=== PATIENT | male | born 1975 | race African-American/Black ===

== ENCOUNTER 2018-11-30 09:25 | Observation (INO) | payer OTHER ==
[2018-11-30] MEDS ORDERED: ONDANSETRON 4 MG/2 ML VIAL ONE (09:53)
[2018-11-30 09:55] LABS: Absolute Lymphocytes (CBC) 2.1 K/uL (0.7-4.9); Basophils % 0.5 % (0-1.3); Eosinophils % 4.1 % (0-4.4); Hematocrit 44.1 % (39.6-49.0); Lymphocytes % 25.6 % (15.3-44.8); MPV 9.1 fL (7.6-11.3); Monocytes % 6.4 % (3.3-12.3); RBC Red Blood Cell Count 5.35 M/uL (4.33-5.43)
[2018-11-30 09:57] LABS: Protime INR 0.97
[2018-11-30] MEDS ORDERED: MECLIZINE HCL 12.5 MG TAB ONE (09:59)
[2018-11-30] MEDS ORDERED: NA CHLORIDE 0.9% 1,000 ML ONE (10:00)
--- NOTE | 2018-11-30 10:08 | EKG ---
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
--- NOTE | 2018-11-30 10:10 | RAD REPORT ---
EXAM DESCRIPTION: CT - Head Brain Wo Cont - 11/30/2018 9:58 am CLINICAL HISTORY: Weakness, dizziness, vertigo, hypertension COMPARISON: None. TECHNIQUE: Axial 5 mm thick images of the head were obtained without IV contrast. All CT scans are performed using dose optimization technique as appropriate and may include automated exposure control or mA/KV adjustment according to patient size. FINDINGS: No intracranial hemorrhage, mass, edema or shift of mid-line structures. No acute infarcti on changes seen. No abnormal extra-axial fluid collections. Ventricles are normal. Mastoid air cells and visualized portions of the paranasal sinuses are clear. No acute bony findings. IMPRESSION: Negative non-contrast CT head examination.
[2018-11-30 10:21] LABS: Albumin 3.7 g/dL (3.4-5.0); Bilirubin Direct 0.1 mg/dL (0-0.2); Bilirubin Total 0.6 mg/dL (0.2-1.0); Magnesium 2.1 mg/dL (1.8-2.4); Potassium 3.8 mmol/L (3.5-5.1); Protein, Total 7.7 g/dL (6.4-8.2); Troponin (Emerg Dept Use Only) 0.39 ng/mL (0.0-0.045)
[2018-11-30] MEDS ORDERED: ENOXAPARIN 100 MG/ML SYR SQ ONE (11:09)
[2018-11-30] MEDS ORDERED: ASPIRIN 81 MG CHEWABLE TABLET ONE (11:09)
--- NOTE | 2018-11-30 11:20 | EDPHYS ---
Physician Documentation [facility] Name: Jeannettejohana Cristiano Age: 43 yrs Sex: Male : 1975 Arrival Date: 11/30/2018 Time: 09:27 Bed 2 Private MD: ED Physician Alo Ortiz HPI: 11/30 09:51 This 43 yrs old Black Male presents to ER via EMS with complaints of Vertigo, Nausea. cp 09:51 The patient presents with lightheadedness, feeling off balance, sense of spinning. cp 09:51 Onset: The symptoms/episode began/occurred this morning, upon awakening at 0400. cp Context: occurred at work, occurred while the patient was getting up from bed, just prior to the episode the patient experienced no apparent symptoms. Associated signs and symptoms: Pertinent positives: nausea, Pertinent negatives: abdominal pain, chest pain, diaphoresis, focal weakness, headache, syncope, vomiting. Severity of symptoms: in the emergency department the symptoms are unchanged despite EMS interventions. Patient's baseline: Neuro: alert and fully oriented, Motor: no deficits, Ambulation: walks without assistance, Speech: normal. Historical: - Allergies: 09:34 No Known Allergies; sv - Home Meds: 09:34 losartan-hydrochlorothiazide oral oral [Active]; amlodipine oral [Active]; sv - PMHx: 09:34 Hypertension; vertigo; sv - PSHx: 09:34 Hernia repair; sv - Immunization history:: Adult Immunizations up to date. - Social history:: Smoking status: Patient/guardian denies using tobacco, Patient uses alcohol, but reports only rare drinking. - Ebola Screening: : No symptoms or risks identified at this time. ROS: 09:55 Constitutional: Negative for body aches, chills, fever, poor PO intake. cp 09:55 Eyes: Negative for injury, pain, redness, and discharge. cp 09:55 ENT: Negative for drainage from ear(s), ear pain, sore throat, difficulty swallowing, difficulty handling secretions. 09:55 Cardiovascular: Negative for chest pain, edema, palpitations. 09:55 Respiratory: Negative for cough, shortness of breath, wheezing. 09:55 Abdomen/GI: Positive for nausea, Negative for abdominal pain, vomiting, diarrhea, constipation, black/tarry stool, rectal bleeding. 09:55 : Negative for urinary symptoms, testicular pain 09:55 Neuro: Positive for dizziness, Negative for altered mental status, headache, syncope, weakness. 09:55 All other systems are negative. Exam: 09:35 ECG was reviewed by the Attending Physician. cp 09:58 Constitutional: The patient appears in no acute distress, alert, awake, cp non-diaphoretic, non-toxic, well developed, well nourished. 09:58 Head/Face: Normocephalic, atraumatic. cp 09:58 Eyes: Periorbital structures: appear normal, Pupils: equal, round, and reactive to light and accomodation, Extraocular movements: intact throughout, Conjunctiva: normal, no exudate, no injection, Sclera: no appreciated abnormality, Lids and lashes: appear normal, bilaterally, Nystagmus: nystagmus with fast component noted, bilaterally. 09:58 ENT: External ear(s): are unremarkable, Ear canal(s): are normal, clear, TM's: are normal, no evidence of bulging, no erythema, Nose: is normal, Mouth: is normal, Posterior pharynx: is normal, airway is patent, no erythema, no exudate. 09:58 Neck: ROM/movement: is normal, is supple, without pain, no range of motions limitations, no meningismus, no nuchal rigidity. 09:58 Chest/axilla: Inspection: normal, Palpation: is normal, no crepitus, no tenderness. 09:58 Cardiovascular: Rate: normal, Rhythm: regular, Edema: is not appreciated, JVD: is not appreciated. 09:58 Respiratory: the patient does not display signs of respiratory distress, Respirations: normal, Breath sounds: are clear throughout, no decreased breath sounds, no stridor, no wheezing. 09:58 Abdomen/GI: Inspection: abdomen appears normal, Bowel sounds: active, all quadrants, Palpation: abdomen is soft and non-tender, in all quadrants, rebound tenderness, is not appreciated, voluntary guarding, is not appreciated, involuntary guarding, is not appreciated. 09:58 Skin: no rash present. 09:58 Neuro: Orientation: to person, place \T\ time. Mentation: is normal, Cerebellar function: is grossly normal, Motor: is normal, Sensation: no obvious gross deficits. Vital Signs: 09:34 BP 149 / 82; Pulse 67; Resp 16; Temp 97.5; Pulse Ox 99% ; Weight 113.4 kg; Height 5 ft. sv 11 in. (180.34 cm); Pain 0/10; 10:42 BP 140 / 95; Pulse 49; Resp 16; Pulse Ox 99% ; sv 09:34 Body Mass Index 34.87 (113.40 kg, 180.34 cm) sv NIH Stroke Scale Scores: 09:35 NIHSS Score: 0 sv 09:48 NIHSS Score: 0 cp [place] Coma Score: 09:48 Eye Response: spontaneous(4). Verbal Response: oriented(5). Motor Response: obeys cp commands(6). Total: 15. MDM: 09:45 Patient medically screened. cp 09:46 ED course: Patient is not a candidate for tpa due to onset of symptoms occurring upon cp awakening \T\0400 this morning. 10:55 Data reviewed: vital signs, nurses notes, lab test result(s), EKG, radiologic studies, cp CT scan, plain films, I have discussed the patient's presentation/case with the attending Emergency Department Physician; and as a result, I will admit patient. 10:55 Test interpretation: by ED physician or midlevel provider: ECG, plain radiologic cp studies. Counseling: I had a detailed discussion with the patient and/or guardian regarding: the historical points, exam findings, and any diagnostic results supporting the discharge/admit diagnosis, lab results, radiology results, to return to the emergency department if symptoms worsen or persist or if there are any questions or concerns that arise at home. 11:10 Physician consultation: Roscoe Myers DO was contacted at 11:10, regarding admission, cp to the telemetry unit. patient's condition. 11/30 09:42 Order name: Basic Metabolic Panel; Complete Time: 10:25 11/30 11:06 Interpretation: Normal except: GLUC 111; CRE 1.32; GFR 72. cp 11/30 09:42 Order name: CBC with Diff; Complete Time: 10:25 11/30 09:42 Order name: LFT's; Complete Time: 10:25 11/30 09:42 Order name: Magnesium; Complete Time: 10:25 11/30 09:42 Order name: NT PRO-BNP; Complete Time: 10:25 11/30 09:42 Order name: PT-INR; Complete Time: 10:25 sv 11/30 09:42 Order name: Troponin (emerg Dept Use Only); Complete Time: 10:25 11/30 10:29 Interpretation: Abnormal: TROPED 0.39. 11/30 09:42 Order name: XRAY Chest (1 view); Complete Time: 12:18 sv 11/30 12:18 Interpretation: Report review. 11/30 09:42 Order name: CT Head Brain wo Cont; Complete Time: 10:25 11/30 10:46 Interpretation: Report reviewed. 11/30 11:07 Order name: Troponin (emerg Dept Use Only); Complete Time: 12:18 11/30 12:19 Interpretation: Abnormal: TROPED 0.50. 11/30 09:42 Order name: EKG; Complete Time: 09:45 11/30 09:42 Order name: Cardiac monitoring; Complete Time: 09:43 sv 11/30 09:42 Order name: EKG - Nurse/Tech; Complete Time: 09:43 11/30 09:42 Order name: IV Saline Lock; Complete Time: 09:43 sv 11/30 09:42 Order name: Labs collected and sent; Complete Time: 09:43 sv 11/30 09:42 Order name: O2 Per Protocol; Complete Time: 09:43 11/30 09:42 Order name: O2 Sat Monitoring; Complete Time: 09:43 sv EC:35 Rate is 71 beats/min. Rhythm is regular. AL interval is normal. QRS interval is normal. cp QT interval is normal. T waves are Inverted in lead aVL. Interpreted by me. Reviewed by me. Administered Medications: 09:39 Drug: Zofran 4 mg Route: IVP; Site: left antecubital; sv 09:53 Follow up: Response: No adverse reaction; Marked relief of symptoms; Nausea is decreasedsv 09:52 Drug: Meclizine 50 mg Route: PO; sv 10:50 Follow up: Response: No adverse reaction; Marked relief of symptoms sv 09:52 Drug: NS 0.9% 1000 ml Route: IV; Rate: 1000 ml; Site: left antecubital; sv 11:00 Drug: Aspirin Chewable Tablet 324 mg Route: PO; sv 11:13 Follow up: Response: No adverse reaction sv 11:00 Drug: Lovenox 100 mg Route: Sub-Q; Site: left lower abdomen; sv 11:13 Follow up: Response: No adverse reaction sv Disposition: 13:21 Co-signature as Attending Physician, Alo Ortiz MD. gs Disposition: 11/30/18 11:19 Hospitalization ordered by Roscoe Myers for Inpatient Admission. Preliminary diagnosis are Dizziness and giddiness, Other hypertrophic cardiomyopathy, Hypertensive heart disease, Elevated troponin. - Bed requested for Telemetry/MedSurg (Inpatient). - Status is Inpatient Admission. sv - Condition is Stable. - Problem is new. - Symptoms have improved. UTI on Admission? No NIH Stroke Scale - NIH Stroke Score Date: 11/30/2018 Time: 09:35 Total Score = 0 1a. Level of Consciousness (LOC) - 0(Alert) 1b. Level of Consciousness (LOC) (Year \T\ Age) - 0(Both) 1c. LOC Commands (Open \T\ Closes Eyes/Clinical Research Monitor) - 0(Both) 2. Best Gaze (Lateral Gaze Paresis) - 0(Normal) 3. Visual Field Loss - 0(No visual loss) 4. Facial Palsy - 0(Normal) 5a. Left Arm: Motor (10-second hold) - 0(No drift) 5b. Right Arm: Motor (10-second hold) - 0(No drift) 6a. Left Leg: Motor (5-second hold - always test supine) - 0(No drift) 6b. Right Leg: Motor (5-second hold - always test supine) - 0(No drift) 7. Limb Ataxia (finger/nose \T\ heel/rendon - test with eyes open) - 0(Absent) 8. Sensory Loss (pinprick arms/legs/face) - 0(Normal) 9. Best Language: Aphasia (description/naming/reading) - 0(No aphasia) 10. Dysarthria (speech clarity - read or repeat words) - 0(Normal) 11. Extinction and Inattention (visual/tactile/auditory/spatial/personal) - 0(No abnormality) Initials: sv NIH Stroke Scale - NIH Stroke Score Date: 11/30/2018 Time: 09:48 Total Score = 0 1a. Level of Consciousness (LOC) - 0(Alert) 1b. Level of Consciousness (LOC) (Year \T\ Age) - 0(Both) 1c. LOC Commands (Open \T\ Closes Eyes/Clinical Research Monitor) - 0(Both) 2. Best Gaze (Lateral Gaze Paresis) - 0(Normal) 3. Visual Field Loss - 0(No visual loss) 4. Facial Palsy - 0(Normal) 5a. Left Arm: Motor (10-second hold) - 0(No drift) 5b. Right Arm: Motor (10-second hold) - 0(No drift) 6a. Left Leg: Motor (5-second hold - always test supine) - 0(No drift) 6b. Right Leg: Motor (5-second hold - always test supine) - 0(No drift) 7. Limb Ataxia (finger/nose \T\ heel/rendon - test with eyes open) - 0(Absent) 8. Sensory Loss (pinprick arms/legs/face) - 0(Normal) 9. Best Language: Aphasia (description/naming/reading) - 0(No aphasia) 10. Dysarthria (speech clarity - read or repeat words) - 0(Normal) 11. Extinction and Inattention (visual/tactile/auditory/spatial/personal) - 0(No abnormality) Initials: cp Signatures: Dispatcher [employer] EDAR Sandra Natarajan RN RN sv Page, Corey, PA PA cp Starr, Gregory, MD MD gs Botello, Elizabeth eb Corrections: (The following items were deleted from the chart) 12:01 11:19 Hospitalization Ordered by Roscoe Myers DO for Inpatient Admission. eb Preliminary diagnosis is Dizziness and giddiness; Other hypertrophic cardiomyopathy; Hypertensive heart disease; Elevated troponin. Bed requested for Telemetry/MedSurg (Inpatient). Status is Inpatient Admission. Condition is Stable. Problem is new. Symptoms have improved. UTI on Admission? No. cp 13:08 12:01 11/30/2018 11:19 Hospitalization Ordered by Roscoe Myers DO for sv Inpatient Admission. Preliminary diagnosis is Dizziness and giddiness; Other hypertrophic cardiomyopathy; Hypertensive heart disease; Elevated troponin. Bed requested for Telemetry/MedSurg (Inpatient). Status is Inpatient Admission. Condition is Stable. Problem is new. Symptoms have improved. UTI on Admission? No. eb
--- NOTE | 2018-11-30 11:20 | ER ---
Nurse's Notes [facility] Name: Seymour Cristiano Age: 43 yrs Sex: Male : 1975 Arrival Date: 11/30/2018 Time: 09:27 Bed 2 Private MD: Diagnosis: Dizziness and giddiness;Other hypertrophic cardiomyopathy;Hypertensive heart disease;Elevated troponin Presentation: 11/30 09:22 Presenting complaint: EMS states: vertigo/nausea started 0400 today right after waking sv up. Negative TILT/stroke scale. BP 155/95 HR-80 RR-18 97% RA 967.6, 20 G L AC. Transition of care: patient was not received from another setting of care. Onset of symptoms was November 30, 2018 at 04:00. Risk Assessment: Do you want to hurt yourself or someone else? Patient reports no desire to harm self or others. Initial Sepsis Screen: Does the patient meet any 2 criteria? No. Patient's initial sepsis screen is negative. Does the patient have a suspected source of infection? No. Patient's initial sepsis screen is negative. Care prior to arrival: Medication(s) given: zofran 4 mg IVP IV initiated. 20 GA, in the left antecubital area. 09:22 Method Of Arrival: EMS: [facility] sv 09:27 Acuity: BEBE 3 sv Triage Assessment: 09:25 General: Appears in no apparent distress. comfortable, well developed, Behavior is sv calm, cooperative, appropriate for age. Pain: Denies pain. Neuro: Level of Consciousness is awake, alert, obeys commands, Oriented to person, place, time, situation, Liability Analyst are equal bilaterally Moves all extremities. Full function Speech is normal, Facial symmetry appears normal, Facial symmetry: tongue is midline, Pupils are PERRLA, Reports dizziness, Denies blurred vision numbness headache diplopia. Cardiovascular: Patient's skin is warm and dry. Rhythm is sinus rhythm. Respiratory: Airway is patent Respiratory effort is even, unlabored, Respiratory pattern is regular, symmetrical. GI: Reports nausea. Derm: Skin is pink, warm \T\ dry. Historical: - Allergies: 09:34 No Known Allergies; sv - Home Meds: 09:34 losartan-hydrochlorothiazide oral oral [Active]; amlodipine oral [Active]; sv - PMHx: 09:34 Hypertension; vertigo; sv - PSHx: 09:34 Hernia repair; sv - Immunization history:: Adult Immunizations up to date. - Social history:: Smoking status: Patient/guardian denies using tobacco, Patient uses alcohol, but reports only rare drinking. - Ebola Screening: : No symptoms or risks identified at this time. Screenin:30 Abuse screen: Denies threats or abuse. Denies injuries from another. Nutritional sv screening: No deficits noted. Tuberculosis screening: No symptoms or risk factors identified. Fall Risk No fall in past 12 months (0 pts). No secondary diagnosis (0 pts). IV access (20 points). Ambulatory Aid- None/Bed Rest/Nurse Assist (0 pts). Gait- Normal/Bed Rest/Wheelchair (0 pts) Mental Status- Oriented to own ability (0 pts). Total Frias Fall Scale indicates No Risk (0-24 pts). 09:35 VAN Screening: Arm Drift: Patient shows no arm weakness. Patient is VAN negative. sv Visual Disturbance: No visual disturbance noted. Aphasia: No aphasia noted. Neglect: No neglect noted. 09:51 Patient has been NPO before screening. The patient is alert, able to follow commands. sv The patient does not exhibit slurred or garbled speech The patient is not exhibiting difficulty speaking. The patient does not exhibit difficulty understanding words. The patient is able to swallow own secretions with no drooling or need for suction. Patient tolerated one teaspoon of water. No drooling, immediate coughing, gurgling, or clearing of the throat was noted. The patient tolerated 90mL of water. No drooling, immediate coughing, gurgling, or clearing of the throat was noted. The patient passed the bedside swallow screening. Oral medications may be given as ordered. Contact Physician for further diet orders. Provider notified of bedside swallow screening results: Andresw CHRISTY. Assessment: 10:50 Reassessment: Patient appears in no apparent distress at this time. Patient and/or sv family updated on plan of care and expected duration. Pain level reassessed. Patient is alert, oriented x 3, equal unlabored respirations, skin warm/dry/pink. Patient denies pain at this time. Patient states feeling better. Patient states symptoms have improved. 11:00 Reassessment: Dr Myers at the bedside. sv 12:04 Reassessment: Attempted to call report, nurse to call back. sv 12:05 Reassessment: Patient appears in no apparent distress at this time. Patient and/or sv family updated on plan of care and expected duration. Pain level reassessed. Patient is alert, oriented x 3, equal unlabored respirations, skin warm/dry/pink. Vital Signs: 09:34 BP 149 / 82; Pulse 67; Resp 16; Temp 97.5; Pulse Ox 99% ; Weight 113.4 kg; Height 5 ft. sv 11 in. (180.34 cm); Pain 0/10; 10:42 BP 140 / 95; Pulse 49; Resp 16; Pulse Ox 99% ; sv 09:34 Body Mass Index 34.87 (113.40 kg, 180.34 cm) sv [place] Coma Score: 09:48 Eye Response: spontaneous(4). Verbal Response: oriented(5). Motor Response: obeys cp commands(6). Total: 15. NIH Stroke Scale Scores: 09:35 NIHSS Score: 0 sv 09:48 NIHSS Score: 0 cp ED Course: 09:22 Maintain EMS IV. Dressing intact. Good blood return noted. Site clean \T\ dry. Gauge \T\ sv site: 20 G L AC. 09:27 Patient arrived in ED. sv 09:27 Sandra Natarajan, NARDA is Primary Nurse. sv 09:28 Triage completed. sv 09:28 Andrews Peter PA is PHCP. cp 09:28 Alo Ortiz MD is Attending Physician. cp 09:30 Patient has correct armband on for positive identification. Placed in gown. Bed in low sv position. Call light in reach. Side rails up X2. monitoring specialist on. Pulse ox on. NIBP on. Door closed. Warm blanket given. Head of bed elevated. 09:30 Initial lab(s) drawn, by me, sent to lab. sv 09:35 Arm band placed on. sv 09:47 EKG done, by concrete technician. reviewed by Andrews CHRISTY. sm3 09:[address] via stretcher. sv 09:55 Awaiting lab results, Awaiting radiology results. Awaiting for x-ray. sv 09:58 CT Head Brain wo Cont In Process Unspecified. EDMS 10:[address]. sv 10:17 X-ray completed. Portable x-ray completed in exam room. Patient tolerated procedure jb2 well. 10:17 XRAY Chest (1 view) In Process Unspecified. EDMS 11:00 Repeat lab(s) drawn. by me, sent to lab. sv 11:14 Awaiting lab results. sv 11:16 Roscoe Myers DO is Hospitalizing Provider. cp 11:48 Awaiting bed assignment. sv 12:34 No provider procedures requiring assistance completed. Patient admitted, IV remains in aa5 place. Administered Medications: 09:39 Drug: Zofran 4 mg Route: IVP; Site: left antecubital; sv 09:53 Follow up: Response: No adverse reaction; Marked relief of symptoms; Nausea is decreasedsv 09:52 Drug: Meclizine 50 mg Route: PO; sv 10:50 Follow up: Response: No adverse reaction; Marked relief of symptoms sv 09:52 Drug: NS 0.9% 1000 ml Route: IV; Rate: 1000 ml; Site: left antecubital; sv 11:00 Drug: Aspirin Chewable Tablet 324 mg Route: PO; sv 11:13 Follow up: Response: No adverse reaction sv 11:00 Drug: Lovenox 100 mg Route: Sub-Q; Site: left lower abdomen; sv 11:13 Follow up: Response: No adverse reaction sv Outcome: 11:19 Decision to Hospitalize by Provider. cp 12:34 Admitted to Tele accompanied by tech, via wheelchair, with chart, Report called to BRYAN Ibanez RN 12:34 Condition: stable 12:34 Instructed on the need for admit, Demonstrated understanding of instructions. 13:08 Patient left the ED. sv NIH Stroke Scale - NIH Stroke Score Date: 11/30/2018 Time: 09:35 Total Score = 0 1a. Level of Consciousness (LOC) - 0(Alert) 1b. Level of Consciousness (LOC) (Year \T\ Age) - 0(Both) 1c. LOC Commands (Open \T\ Closes Eyes/Dental Detail Representative) - 0(Both) 2. Best Gaze (Lateral Gaze Paresis) - 0(Normal) 3. Visual Field Loss - 0(No visual loss) 4. Facial Palsy - 0(Normal) 5a. Left Arm: Motor (10-second hold) - 0(No drift) 5b. Right Arm: Motor (10-second hold) - 0(No drift) 6a. Left Leg: Motor (5-second hold - always test supine) - 0(No drift) 6b. Right Leg: Motor (5-second hold - always test supine) - 0(No drift) 7. Limb Ataxia (finger/nose \T\ heel/rendon - test with eyes open) - 0(Absent) 8. Sensory Loss (pinprick arms/legs/face) - 0(Normal) 9. Best Language: Aphasia (description/naming/reading) - 0(No aphasia) 10. Dysarthria (speech clarity - read or repeat words) - 0(Normal) 11. Extinction and Inattention (visual/tactile/auditory/spatial/personal) - 0(No abnormality) Initials: pancho NIH Stroke Scale - NIH Stroke Score Date: 11/30/2018 Time: 09:48 Total Score = 0 1a. Level of Consciousness (LOC) - 0(Alert) 1b. Level of Consciousness (LOC) (Year \T\ Age) - 0(Both) 1c. LOC Commands (Open \T\ Closes Eyes/Dental Detail Representative) - 0(Both) 2. Best Gaze (Lateral Gaze Paresis) - 0(Normal) 3. Visual Field Loss - 0(No visual loss) 4. Facial Palsy - 0(Normal) 5a. Left Arm: Motor (10-second hold) - 0(No drift) 5b. Right Arm: Motor (10-second hold) - 0(No drift) 6a. Left Leg: Motor (5-second hold - always test supine) - 0(No drift) 6b. Right Leg: Motor (5-second hold - always test supine) - 0(No drift) 7. Limb Ataxia (finger/nose \T\ heel/rendon - test with eyes open) - 0(Absent) 8. Sensory Loss (pinprick arms/legs/face) - 0(Normal) 9. Best Language: Aphasia (description/naming/reading) - 0(No aphasia) 10. Dysarthria (speech clarity - read or repeat words) - 0(Normal) 11. Extinction and Inattention (visual/tactile/auditory/spatial/personal) - 0(No abnormality) Initials: cp Signatures: Dispatcher [employer] Sandra Valera RN RN sv Buechter, Jesse jb2 Sydney Reyes RN RN aa5 Andrews Peter PA PA cp Meghann Byers sm3 Corrections: (The following items were deleted from the chart) 11:13 09:30 Initial lab(s) drawn, by me, pancho sv
--- NOTE | 2018-11-30 11:37 | P.HP ---
Certification for Inpatient Patient admitted to: Observation With expected LOS: <2 Midnights Patient will require the following post-hospital care: None Practitioner: I am a practitioner with admitting privileges, knowledge of patient current condition, hospital course, and medical plan of care. Services: Services provided to patient in accordance with Admission requirements found in Title 42 Section 412.3 of the Code of Federal Regulations Patient History Date of Service: 11/30/18 Primary Care Provider: Dr. Conklin; Cardiology-Dr. Betancourt Reason for admission: Dizziness History of Present Illness: 43-year-old male presented emergency room with dizziness. Patient with history of hypertension and hypertrophic cardiomyopathy. Patient reported dizziness early this morning when he woke up. He did not have any chest pain or shortness of breath at that time. Some nausea was noted. Patient did not improve. He called EMS. He was transported to the ER for further evaluation. In the ER patient evaluated. EKG showed some inverted T-waves in the inferior leads. Troponin was at 0.39. CBC unremarkable. BMP showed a sodium 142, creatinine 1.32 with a GFR 72. CT head unremarkable. Patient was given meclizine with improvement of symptoms. Patient was admitted for observation and to further evaluate. When I saw the patient in ER, he appeared stable. No chest pain, shortness of breath noted. Blood pressure slightly elevated. Patient reports history of cardiomyopathy. Seen by Cardiology in the past. Last seen by Cardiology 2 years ago. Last cardiac stress test done last year in [place] which was unremarkable, as per patient. Allergies No Known Allergies Allergy (Unverified 02/19/16 03:09) Home medications list reviewed: Yes - Past Medical/Surgical History Diabetic: No -: Hypertension -: Hypertrophic cardiomyopathy -: Hernia repair Psychosocial/ Personal History: Patient has a girlfriend. 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 - Family History Father -: Heart disease - Social History Smoking Status: Never smoker Alcohol use: Yes CD- Drugs: No Caffeine use: Yes Place of Residence: Home Review of Systems General: As per HPI Eyes: Unremarkable ENT: Unremarkable Respiratory: Unremarkable Cardiovascular: Light Headedness, As per HPI Gastrointestinal: Nausea, Unremarkable Musculoskeletal: Unremarkable Integumentary: Unremarkable Neurological: As per HPI Lymphatics: Unremarkable Physical Examination - Physical Exam General: Alert, In no apparent distress, Oriented x3, Cooperative HEENT: Atraumatic, Normocephalic, PERRLA, Mucous membr. moist/pink Neck: Supple, No Thyromegaly Respiratory: Clear to auscultation bilaterally, Normal air movement Cardiovascular: Normal pulses, Regular rate/rhythm Gastrointestinal: Normal bowel sounds, Soft and benign, Non-distended, No tenderness, No masses, No rebound, No guarding Musculoskeletal: No erythema, No tenderness, No warmth Integumentary: No tenderness/swelling, No erythema, No warmth, No cyanosis Neurological: Normal speech, Normal strength at 5/5 x4 extr, Normal tone, Normal affect - Studies Laboratory Data (last 24 hrs) 11/30/18 09:30: PT 11.5, INR 0.97 11/30/18 09:30: WBC 8.4, Hgb 14.3, Hct 44.1, Plt Count 233 11/30/18 09:30: Sodium 142, Potassium 3.8, BUN 14, Creatinine 1.32 H, Glucose 111 H, Magnesium 2.1, Total Bilirubin 0.6, AST 31, ALT 43, Alkaline Phosphatase 78 Assessment and Plan - Plan Impression: Dizziness with elevated troponin likely related to hypertrophic cardiomyopathy Hypertension, uncontrolled Plan: Patient will be admitted for observation. Case discussed with cardiology. Elevated troponin likely related to his hypertrophic cardiomyopathy. Will start DVT prophylaxis-Lovenox. Will start aspirin, Lipitor. Will restart his home medication of losartan and Norvasc. Adjustment in medication may be required. Will obtain echocardiogram to further evaluate. Patient may require further cardiac intervention/evaluation. Await further recommendations by Cardiology. Will continue to monitor patient closely. Will provide medication for chest pain if required. Patient reports history of cardiac stress test last year in [place] which was unremarkable. Will try to obtain results from [place]. Continue to monitor on telemetry. Will continue with cardiac enzymes. Anticipate discharge in the next 24-48 hr. Discharge Plan: Home Plan to discharge in: 24 Hours - Advance Directives Does patient have a Living Will: No Does patient have a Durable POA for Healthcare: No - Code Status/Comfort Care Code Status Assessed: Yes (Patient full code.) Time Spent Managing Pts Care (In Minutes): 55
--- NOTE | 2018-11-30 12:05 | RAD REPORT ---
EXAM DESCRIPTION: Tonja Single View11/30/2018 10:19 am CLINICAL HISTORY: Hypertension/vertigo COMPARISON: 2010 FINDINGS: The lungs appear clear of acute infiltrate. The heart is normal size. Mild prominence of the mediastinum is stable IMPRESSION: No acute abnormalities displayed
[2018-11-30] MEDS ORDERED: NITROGLYCERIN 0.4 MG/TAB SL PRN (13:26)
[2018-11-30] MEDS ORDERED: ONDANSETRON 4 MG/2 ML VIAL IV PRN (13:26)
[2018-11-30] MEDS ORDERED: MORPHINE 2 MG/ML SYR IV PRN (13:26)
[2018-11-30] MEDS ORDERED: ACETAMINOPHEN 500 MG TAB PO PRN (13:26)
[2018-11-30 16:24] LABS: Urine Appearance CLEAR; Urine Bilirubin NEGATIVE (NEG); Urine Blood NEGATIVE (NEG); Urine Color YELLOW; Urine Glucose NEGATIVE (NEG); Urine Microscopic Reflex NO UMIC; Urine Protein NEGATIVE (NEG); Urine Urobilinogen 0.2 mg/dL (0.2-1.0)
--- NOTE | 2018-11-30 17:05 | P.DS ---
Admission Date: 11/30/18 Discharge Date: 11/30/18 Primary Care Provider: Dr. Conklin; Cardiology-Dr. Betancourt Disposition: ROUTINE DISCHARGE Discharge Condition: GOOD Reason for Admission: Dizziness Consultations: Cardiology-Dr. Robertson Procedures: Echocardiogram: Ejection fraction within normal range. LVH noted. Medical problem list: Dizziness likely related to benign paroxysmally positional vertigo Elevated troponin secondary to hypertrophic cardiomyopathy Hypertension, uncontrolled Brief History of Present Illness: 43-year-old male presented emergency room with dizziness. Patient with history of hypertension and hypertrophic cardiomyopathy. Patient reported dizziness early this morning when he woke up. He did not have any chest pain or shortness of breath at that time. Some nausea was noted. Patient did not improve. He called EMS. He was transported to the ER for further evaluation. In the ER patient evaluated. EKG showed some inverted T-waves in the inferior leads. Troponin was at 0.39. CBC unremarkable. BMP showed a sodium 142, creatinine 1.32 with a GFR 72. CT head unremarkable. Patient was given meclizine with improvement of symptoms. Patient was admitted for observation and to further evaluate. When I saw the patient in ER, he appeared stable. No chest pain, shortness of breath noted. Blood pressure slightly elevated. Patient reports history of cardiomyopathy. Seen by Cardiology in the past. Last seen by Cardiology 2 years ago. Last cardiac stress test done last year in [place] which was unremarkable, as per patient. Hospital Course: Patient presented with dizziness. Patient evaluated in the emergency room found to have elevated troponin. Patient with underlying hypertrophic cardiomyopathy. Blood pressures elevated upon admission. Patient was admitted for observation. Patient seen and evaluated by Cardiology. Echocardiogram showed normal ejection fraction with left ventricular hypertrophy. Elevated troponin likely related to hypertrophic cardiomyopathy. Cardiology recommended no further intervention at this time. Prior cardiac stress test unremarkable. Cardiology felt dizziness was related to benign paroxysmally positional vertigo. Patient responded well to medication. At discharge he will continue with meclizine 25 mg twice daily as needed for dizziness. Hallpike maneuvers will be provided. As for his hypertrophic cardiomyopathy and hypertension, patient will continue with his current medications of losartan/hydrochlorothiazide 100 mg/25 mg daily and Norvasc 10 mg daily. Will recommend to start aspirin 81 mg daily and fish oil 1000 mg 2 pills twice daily. Recommend to follow up with cardiology within 1-2 weeks to follow up this hospitalization. Patient may require cardiac stress test as an outpatient to further address. Recommend annual echocardiogram to monitor hypertrophic cardiomyopathy. Recommend blood pressures to remain around 120/80. If elevated greater than 140/90 further adjustment in medication may be required. This can be further addressed by his PCP or cardiology. Patient to continue with [employer] diet. Vital Signs/Physical Exam: Temp Pulse Resp BP Pulse Ox 97.1 F 63 18 125/58 L 97 11/30/18 16:24 11/30/18 16:24 11/30/18 16:24 11/30/18 16:24 11/30/18 16:24 General: Alert, In no apparent distress, Oriented x3, Cooperative HEENT: Atraumatic Neck: Supple Respiratory: Clear to auscultation bilaterally, Normal air movement Cardiovascular: Normal pulses, Regular rate/rhythm Gastrointestinal: Normal bowel sounds, Soft and benign, Non-distended Integumentary: No erythema, No warmth, No cyanosis Neurological: Normal speech, Normal strength at 5/5 x4 extr, Normal tone, Normal affect Laboratory Data at Discharge: WBC 8.4 K/uL (4.3-10.9) 11/30/18 09:30 Hgb 14.3 g/dL (13.6-17.9) 11/30/18 09:30 Hct 44.1 % (39.6-49.0) 11/30/18 09:30 Plt Count 233 K/uL (152-406) 11/30/18 09:30 PT 11.5 SECONDS (9.5-12.5) 11/30/18 09:30 INR 0.97 11/30/18 09:30 Sodium 142 mmol/L (136-145) 11/30/18 09:30 Potassium 3.8 mmol/L (3.5-5.1) 11/30/18 09:30 BUN 14 mg/dL (7-18) 11/30/18 09:30 Creatinine 1.32 mg/dL (0.55-1.3) H 11/30/18 09:30 Glucose 111 mg/dL (74-106) H 11/30/18 09:30 Magnesium 2.1 mg/dL (1.8-2.4) 11/30/18 09:30 Total Bilirubin 0.6 mg/dL (0.2-1.0) 11/30/18 09:30 AST 31 U/L (15-37) 11/30/18 09:30 ALT 43 U/L (12-78) 11/30/18 09:30 Alkaline Phosphatase 78 U/L (45-117) 11/30/18 09:30 Home Medications: Amlodipine [Norvasc*] 10 mg PO DAILY 11/30/18 Aspirin [Aspirin EC 81 MG] 81 mg PO DAILY #90 tablet. 11/30/18 Losartan/Hydrochlorothiazide [Losartan-Hctz 100-25 mg Tab] 1 each PO DAILY 11/30 Meclizine HCl 25 mg PO BID PRN #5 tablet 11/30/18 [place]-3 Fatty Acids/Fish Oil [Fish Oil 1,000 mg Softgel] 2 each PO BID #120 capsule 11/30/18 New Medications: Aspirin [Aspirin EC 81 MG] 81 mg PO DAILY #90 tablet. Meclizine HCl 25 mg PO BID PRN #5 tablet PRN Reason: Dizziness [place]-3 Fatty Acids/Fish Oil [Fish Oil 1,000 mg Softgel] 2 each PO BID #120 capsule Patient Discharge Instructions: 1. Follow up with his PCP in 1 week to follow up this hospitalization. 2. Patient presented with dizziness. Patient evaluated in the emergency room found to have elevated troponin. Patient with underlying hypertrophic cardiomyopathy. Blood pressures elevated upon admission. Patient was admitted for observation. Patient seen and evaluated by Cardiology. Echocardiogram showed normal ejection fraction with left ventricular hypertrophy. Elevated troponin likely related to hypertrophic cardiomyopathy. Cardiology recommended no further intervention at this time. Prior cardiac stress test unremarkable. Cardiology felt dizziness was related to benign paroxysmally positional vertigo. Patient responded well to medication. At discharge he will continue with meclizine 25 mg twice daily as needed for dizziness. Hallpike maneuvers will be provided. 3. As for his hypertrophic cardiomyopathy and hypertension, patient will continue with his current medications of losartan/hydrochlorothiazide 100 mg/25 mg daily and Norvasc 10 mg daily. Will recommend to start aspirin 81 mg daily and fish oil 1000 mg 2 pills twice daily. Recommend to follow up with cardiology within 1-2 weeks to follow up this hospitalization. Patient may require cardiac stress test as an outpatient to further address. Recommend annual echocardiogram to monitor hypertrophic cardiomyopathy. Recommend blood pressures to remain around 120/80. If elevated greater than 140/90 further adjustment in medication may be required. This can be further addressed by his PCP or cardiology. Patient to continue with [employer] diet. Diet: AHA Activity: Ad hakeem Time spent managing pt's care (in minutes): 55
[2018-11-30] MEDS ORDERED: LOSARTAN POTASSIUM 50 MG TABLET PO SCH (21:00)
[2018-11-30] MEDS ORDERED: ATORVASTATIN 80 MG TAB PO SCH (21:00)
--- NOTE | 2018-11-30 23:23 | CON ---
Date of Consultation: 11/30/2018 Admitted on 11/30/[address] Myers's service. I saw the patient on 11/30/2018. Reason For Consultation: Elevated troponin and abnormal EKG. History Of Present Illness: Mr. Quinonez is a 43-year-old black male, has had a history of hypertension and left ventricular hypertrophy in the past. He has seen Dr. Betancourt and has had a negative stress test in the past. He is very physically active, works out 3 times a week up to 20 or 30 minutes at a time with weightlifting and treadmill without any cardiac symptoms. He came in with vertigo. He mccall d a negative head CT; however, the EKG showed LVH and his troponin was 0.5 and I was consulted. His creatinine was 1.32. He denied PND, orthopnea, pedal edema, palpitations, or syncope. Past Medical History: Include hypertension. Medications: Include Norvasc and Hyzaar. Review of Systems: Negative. Social History: Negative. Family History: Negative. Physical Examination: Vital Signs: Stable, afebrile. HEENT: Negative. Neck: Supple without any bruit, lymphadenopathy, JVD, or thyromegaly. Chest: Clear to auscultation and percussion. Cardiac: Exam revealed a regular rhythm and rate with an S4 gallop. No murmurs or rubs. Abdomen: Benign. Extremities: Revealed no clubbing, cyanosis, or edema. Diagnostic Data: Chest x-ray was negative. CT of the head was negative. EKG showed LVH. Troponin of 0.5. Creatinine is 1.32. Impression And Plan: 1.Benign positional vertigo. 2.Hypertension. 3.Elevated troponin. 4.Elevated creatinine. Echocardiogram which was done showed significant hypertrophy without any obs truction and without any gradient, consistent with hypertension. The patient was instructed to watch his salt intake, watch his blood pressure, and continue with his home medication. I think the tropo dylan elevation is secondary to LVH, just likely the EKG changes are. I am comfortable with him going home and he will come to see me in the office on a yearly basis for checkup and maybe do an echocardi ogram once a year. Case was discussed with Dr. Myers. JAKE/MIGEL Voice ID: [id number] Report ID: [id number]
--- NOTE | 2018-12-01 07:44 | ECHO ---
HEIGHT: 5 ft 11 in WEIGHT: 259 lb 0 oz DATE OF STUDY: 11/30/[address]: Roscoe Myers DO 2-DIMENSIONAL: YES M.MODE: YES DOPPLER: YES COLOR FLOW: YES TDS: NO PORTABLE: NO DEFINITY: NO BUBBLE STUDY: NO DIAGNOSIS: EVALUATE HYPERTROPHIC CARDIOMYOPATHY CARDIAC HISTORY: CATHERIZATION: NO SURGERY: NO PROSTHETIC VALVE: NO PACEMAKER: NO MEASUREMENTS (cm) DIASTOLIC (NORMALS) SYSTOLIC (NORMALS) IVSd 1.5 (0.6-1.2) LA Diam 4.0 (1.9-4.0) LVEF 85% LVIDd 4.4 (3.5-5.7) LVIDs 2.0 (2.0-3.5) %FS 54% LVPWd 1.3 (0.6-1.2) Ao Diam (2.0-3.7) 2 DIMENSIONAL ASSESSMENT: RIGHT ATRIUM: NORMAL LEFT ATRIUM: NORMAL RIGHT VENTRICLE: NORMAL LEFT VENTRICLE: LEFT VENTRICULAR HYPERTROPHY TRICUSPID VALVE: NORMAL MITRAL VALVE: NORMAL PULMONIC VALVE: NORMAL AORTIC VALVE: NORMAL PERICARDIAL EFFUSION: NONE AORTIC ROOT: NORMAL LEFT VENTRICULAR WALL MOTION: NORMAL. DOPPLER/COLOR FLOW: NORMAL. COMMENTS: CONCENTRIC LEFT VENTRICULAR HYPERTROPHY. NORMAL EJECTION FRACTION. NO WALL MOTION ABNORMALITY. TECHNOLOGIST: TRUNG JAMES
[2018-12-01] MEDS ORDERED: AMLODIPINE 10 MG TAB PO SCH (09:00)
[2018-12-01] MEDS ORDERED: ENOXAPARIN 40 MG/0.4 ML SQ SCH (09:00)
[2018-12-01] MEDS ORDERED: ASPIRIN EC 81 MG TAB PO SCH (09:00)
== END 2018-11-30 17:45 | disposition home or self-care (01) ==
LOC: ER 09:25 → ERHOLD 11:21 → 2ND 12:36
PROVIDERS: ADMIT Family Medicine; ATTEND Family Medicine
DX: R42 Dizziness and giddiness (principal); I42.2 Other hypertrophic cardiomyopathy; I10 Essential (primary) hypertension
CPT/HCPCS: 36415; 70450; 71045; 80048; 80076; 81003; 83735; 83880; 84484; 85025; 85610; 93005; 93306; 96372; 96374; 99285; G0378; J1650; J2405; J7030

== ENCOUNTER 2020-01-13 05:56 | Inpatient (IN) | payer OTHER ==
--- OUTSIDE RECORDS SUMMARY | 2020-01-13 05:58 | XMS REPORT | Continuity of Care Document ---
:1975 Author Organization [facility] t Address [address] [place] [address] Care Team Providers Name Role Phone Singh Kothari Attending Clinician Lab, Fam Pob I Attending Clinician Unavailable Doctor Unassigned, Name Attending Clinician Unavailable Problems This patient has no known problems. Allergies, Adverse Reactions, Alerts This patient has no known allergies or adverse reactions. Medications This patient has no known medications. Procedures This patient has no known procedures. Encounters Start End Encounter Admission Attending Care Care Encounter Source Date/Time Date/Time Type Type Clinicians Facility Department ID 2019-12-21 2019-12-[address] [facility] [id number] 00:00:00 00:00:00 [facility] [id number] [place] [id number] Professio [phone] nal [address] 2019-12-20 2019-12-20 Laboratory Lab, [facility] [id number] 07:45:57 08:05:57 Only Fam P[facility] I [facility] [id number] [place] [id number] Professio [phone] nal [address] 2019-12-20 2019-12-20 Letter Doctor CURTIS [id number] 00:00:00 00:00:00 (Out) Unassigned, JESUS [id number] [place] [phone] [id number] Results This patient has no known results.
--- OUTSIDE RECORDS SUMMARY | 2020-01-13 05:58 | XMS REPORT | Summary of Care ---
:1975 Author Organization [facility] - [facility] Address [address] [place] [address] Care Team Providers Name Role Phone Unavailable Primary Care Provider Unavailable Encounter Details Date Type Department Care Team Description 12/20/2019 Letter (Out) [facility] MyChart Message s Doctor Unassigned, No [address] [facility] [place] [address] [address] [facility] [phone] [place] [address] Allergies Not on Filedocumented as of this encounter (statuses as of 12/20/2019) Medications Not on filedocumented as of this encounter (statuses as of 12/20/2019) Active Problems Not on filedocumented as of this encounter (statuses as of 12/20/2019) Social History Tobacco Use Types Packs/Day Years Used Date Never Assessed Sex Assigned at Date Recorded Not on file Job Start Date Occupation Industry Not on file Not on file Not on file Travel History Travel Start Travel End No recent travel history available. COVID-19 Exposure Response Date Recorded In the last month, have you been in contact with Yes 12/20/2019 7:14 AM CDT someone who was confirmed or suspected to have Coronavirus / COVID-19? documented as of this encounter Last Filed Vital Signs Not on filedocumented in this encounter Plan of Treatment Health Maintenance Due Date Last Done Comments DTaP,Tdap,and Td Vaccines (1 - 01/16/1988 Tdap) Depression Screening 1989 INFLUENZA VACCINE (#1) 2020 PNEUMOCOCCAL 0-64 YEARS COMBINED Aged Out No longer eligible based on SERIES patient's age to complete this topic documented as of this encounter Results Not on filedocumented in this encounter Insurance Payer Benefit Plan / Group Subscriber ID Effective Dates Phone Address Type AETNA AETNA CHOICE POS II [id number] 2018-Present POS documented as of this encounter
--- OUTSIDE RECORDS SUMMARY | 2020-01-13 05:58 | XMS REPORT | Summary of Care ---
:1975 Author Organization [facility] Address [address] [place] [address] Care Team Providers Name Role Phone Unavailable Primary Care Provider Unavailable Reason for Visit Reason Comments Exposure Encounter Details Date Type Department Care Team Description 12/20/2019 Laboratory Only [facility] Family Roberta Mon, ABDIRAHMAN [id number] [place] [address] Exposure to Medicine - [facility], Adc Fam Pob I SARS-associated [address] [place] [address] coronavir[address] s ([address] Dx) [place] [phone] Allergies Not on Filedocumented as of this [...] filedocumented in this encounter Plan of Treatment Name Type Priority Associated Diagnoses Order S chedule COVID-19 (PCR MOLECULAR LAB Routine Exposure to Expe cted: 12/20/2019, TESTING) SARS-associated Expires: coronavirus Health Maintenance Due Date Last Done Comments DTaP,Tdap,and Td Vaccines (1 - 01/16/1988 Tdap) Depression Screening 1989 INFLUENZA VACCINE (#1) 2020 PNEUMOCOCCAL 0-64 YEARS COMBINED Aged Out No longer eligible based on SERIES patient's age to complete this topic documented as of this encounter Results Not on filedocumented in this encounter Visit Diagnoses Diagnosis Exposure to SARS-associated coronavirus - Primary documented in this encounter Additional Health Concerns Infection Onset Date Last Indicated Resolved Time COVID-19 Rule Out 12/20/2019 12/20/2019 documented as of this encounter documented as of this encounter
--- OUTSIDE RECORDS SUMMARY | 2020-01-13 05:58 | XMS REPORT | Summary of Care ---
:1975 Author Organization [facility] Address [address] [place] [address] Care Team Providers Name Role Phone Unavailable Primary Care Provider Unavailable Reason for Visit Reason Comments Results Encounter Details Date Type Department Care Team Description 12/21/2019 Telephone [facility] Family Medicine Fatou collins, JAELYN Lechuga Results - [address] [place] [address] [place] [address] [phone] Allergies Not on Filedocumented as of this encounter (statuses as of 12/21/2019) Medications Not on filedocumented as of this encounter (statuses as of 12/21/2019) Active Problems Not on filedocumented as of this encounter (statuses as of 12/21/2019) Social History Tobacco Use Types Packs/Day Years [...] Results Not on filedocumented in this encounter Additional Health Concerns Infection Onset Date Last Indicated Resolved Time COVID-19 Rule Out 12/20/2019 12/20/2019 12/21/2019 4: 03 PM CDT documented as of this encounter Insurance Payer Benefit Plan / Group Subscriber ID Effective Dates Phone Address Type AETNA AETNA CHOICE POS II [id number] 2018-Present POS documented as of this encounter
[2020-01-13] MEDS ORDERED: ASPIRIN 81 MG CHEWABLE TABLET ONE ×2 (06:35→08:00)
[2020-01-13] MEDS ORDERED: NA CHLORIDE 0.9% 1,000 ML ONE (06:35)
[2020-01-13 06:56] LABS: Basophils % 0.7 % (0-1.3); Hematocrit 45.2 % (39.6-49.0); MPV 9.4 fL (7.6-11.3); RBC Red Blood Cell Count 5.51 M/uL (4.33-5.43)
[2020-01-13 07:18] LABS: ALT/SGPT 48 U/L (12-78); AST/SGOT 43 U/L (15-37); Albumin 3.7 g/dL (3.4-5.0); Alkaline Phosphatase 84 U/L (45-117); BUN Blood Urea Nitrogen 14 mg/dL (7-18); Bicarbonate 28 mmol/L (21-32); Bilirubin Direct < 0.1 mg/dL (0-0.2); Bilirubin Total 0.6 mg/dL (0.2-1.0); Glucose Level 126 mg/dL (74-106); NT PRO-BNP 36 pg/mL (<125); Potassium 3.3 mmol/L (3.5-5.1); Protein, Total 8.1 g/dL (6.4-8.2); Sodium Level 143 mmol/L (136-145)
[2020-01-13 07:19] LABS: Magnesium 1.8 mg/dL (1.8-2.4)
[2020-01-13 07:20] LABS: Troponin (Emerg Dept Use Only) 0.57 ng/mL (0.0-0.045)
--- NOTE | 2020-01-13 07:49 | EKG ---
Test Date: 2020-01-13 Test Time: 06:45:09 Arabic Teacher: ZAY MEASUREMENT RESULTS: Intervals: Rate: 85 ME: 154 QRSD: 88 QT: 374 QTc: 445 [place]: P: 60 ME: 154 QRS: 63 T: 65 INTERPRETIVE STATEMENTS: Normal sinus rhythm Normal ECG Compared to ECG 11/30/2018 09:27:49 No significant changes Electronically Signed On 01-13-20 07:48:55 CDT by David Robertson
[2020-01-13] MEDS ORDERED: ENOXAPARIN 100 MG/ML SYR SQ ONE (08:00)
[2020-01-13] MEDS ORDERED: POTASSIUM CL SA 10 MEQ TAB PO ONE (08:01)
--- NOTE | 2020-01-13 08:01 | RAD REPORT ---
EXAM DESCRIPTION: CT - Chest For Pe Angio - 01/13/2020 7:45 am CLINICAL HISTORY: Chest pain. CHEST PAIN COMPARISON: Chest Single View dated 01/13/2020 TECHNIQUE: CT angiogram of the pulmonary arteries was performed with MIP. All CT scans are performed using dose optimization technique as appropriate and may include automated exposure control or mA/KV adjustment according to patient size. FINDINGS: No evidence of pulmonary thromboembolism. No acute aortic finding demonstrated. The lungs are clear. No significant pericardial or pleural fluid. No concerning bony finding. Small hiatal hernia. IMPRESSION: No evidence of pulmonary thromboembolism. No acute lung findings.
--- NOTE | 2020-01-13 08:01 | RAD REPORT ---
EXAM DESCRIPTION: RAD - Chest Single View - 01/13/2020 6:40 am CLINICAL HISTORY: CHEST PAIN Chest pain. COMPARISON: Chest Single View dated 11/30/2018; CHEST SINGLE VIEW dated 12/10/2010; CHEST PA AND LAT 2 VIEW dated 11/13/2004 FINDINGS: Portable technique limits examination quality. The lungs are grossly clear. The heart is normal in size. No displaced fractures. IMPRESSION: No acute intrathoracic process suspected.
[2020-01-13 08:33] LABS: Urine Blood NEGATIVE (NEG); Urine Glucose NEGATIVE (NEG); Urine Protein NEGATIVE (NEG)
--- NOTE | 2020-01-13 09:15 | EDPHYS ---
Physician Documentation [facility] Name: Seymour Cristiano Age: 44 yrs Sex: Male : 1975 Arrival Date: 01/13/2020 Time: 06:02 Bed 4 Private MD: Andrews Sunshine HPI: 01/12 06:09 This 44 yrs old Black Male presents to ER via Ambulatory with complaints of Chest Pain. [facility] 06:09 The patient or guardian reports chest pain that is located primarily in the anterior valente chest wall, bilaterally. Onset: 1 day(s) ago. The pain does not radiate. Associated signs and symptoms: Pertinent positives: pleurtic. The chest pain is described as aching, sore , began after lifting a sink yesterday. Duration: The patient or guardian reports multiple episodes, that wax and wane. Modifying factors: The symptoms are alleviated by remaining still, the symptoms are aggravated by deep breath, movement, palpation of area, twisting torso. The patient has not experienced similar symptoms in the past. Historical: - Allergies: 06:06 No Known Allergies; sg - Home Meds: 06:06 amlodipine oral [Active]; losartan-hydrochlorothiazide Oral [Active]; sg - PMHx: 06:06 Hypertension; Vertigo; sg - PSHx: 06:06 Hernia repair; sg - Immunization history:: Adult Immunizations not immunized. - Social history:: Smoking status: Patient denies any tobacco usage or history of. - Family history:: not pertinent. ROS: 06:09 Constitutional: Negative for fever, chills, and weight loss, Eyes: Negative for injury, valente pain, redness, and discharge, ENT: Negative for injury, pain, and discharge, Neck: Negative for injury, pain, and swelling, Respiratory: Negative for shortness of breath, cough, wheezing, and pleuritic chest pain, Abdomen/GI: Negative for abdominal pain, nausea, vomiting, diarrhea, and constipation, Back: Negative for injury and pain, : Negative for injury, bleeding, discharge, and swelling, MS/Extremity: Negative for injury and deformity, Skin: Negative for injury, rash, and discoloration, Neuro: Negative for headache, weakness, numbness, tingling, and seizure, Psych: Negative for depression, anxiety, suicide ideation, homicidal ideation, and hallucinations, Allergy/Immunology: Negative for hives, rash, and allergies, Endocrine: Negative for neck swelling, polydipsia, polyuria, polyphagia, and marked weight changes. 06:09 Cardiovascular: Positive for chest pain, of the chest. 07:15 Unable to obtain ROS due to no Homans,no cords,no trauma, no hypercoagulable statse. valente Exam: 06:09 Constitutional: This is a well developed, well nourished patient who is awake, alert, valente and in no acute distress. Head/Face: Normocephalic, atraumatic. Eyes: Pupils equal round and reactive to light, extra-ocular motions intact. Lids and lashes normal. Conjunctiva and sclera are non-icteric and not injected. Cornea within normal limits. Periorbital areas with no swelling, redness, or edema. ENT: Nares patent. No nasal discharge, no septal abnormalities noted. Tympanic membranes are normal and external auditory canals are clear. Oropharynx with no redness, swelling, or masses, exudates, or evidence of obstruction, uvula midline. Mucous membranes moist. Neck: Trachea midline, no thyromegaly or masses palpated, and no cervical lymphadenopathy. Supple, full range of motion without nuchal rigidity, or vertebral point tenderness. No Meningismus. Cardiovascular: Regular rate and rhythm with a normal S1 and S2. No gallops, murmurs, or rubs. Normal PMI, no JVD. No pulse deficits. Respiratory: Lungs have equal breath sounds bilaterally, clear to auscultation and percussion. No rales, rhonchi or wheezes noted. No increased work of breathing, no retractions or nasal flaring. Abdomen/GI: Soft, non-tender, with normal bowel sounds. No distension or tympany. No guarding or rebound. No evidence of tenderness throughout. Back: No spinal tenderness. No costovertebral tenderness. Full range of motion. Male : Normal genitalia with no discharge or lesions. Skin: Warm, dry with normal turgor. Normal color with no rashes, no lesions, and no evidence of cellulitis. MS/ Extremity: Pulses equal, no cyanosis. Neurovascular intact. Full, normal range of motion. Neuro: Awake and alert, GCS 15, oriented to person, place, time, and situation. Cranial nerves II-XII grossly intact. Motor strength 5/5 in all extremities. Sensory grossly intact. Cerebellar exam normal. Normal gait. Psych: Awake, alert, with orientation to person, place and time. Behavior, mood, and affect are within normal limits. 06:09 Chest/axilla: Inspection: normal, Palpation: tenderness, that is mild, of the left nipple, right breast and left breast, Axilla: are normal, Lymph nodes: lymphadenopathy is not appreciated. 06:51 ECG was reviewed by the Attending Physician. valente 07:06 Musculoskeletal/extremity: Extremities: all appear grossly normal, with no appreciated valente pain with palpation, ROM: intact in all extremities, Circulation is intact in all extremities. Sensation intact. Compartment Syndrome exam of affected extremity: is normal. no pain, no numbness, no tingling, no sensation deficit, no palor, no weak pulses, DVT Exam: No signs of deep vein thrombosis. no pain, no swelling, no tenderness, negative Homans' sign noted on exam, no appreciated bluish discoloration, no erythema, no increased warmth. Vital Signs: 07:10 BP 157 / 97; Pulse 79; Resp 20; Pulse Ox 98% on R/A; jr10 07:30 Temp 97.8(O); Weight 117.93 kg; jr10 08:49 BP 156 / 100; Pulse 72; Resp 20; Pulse Ox 98% on R/A; jr10 10:02 BP 139 / 70; Pulse 63; Resp 17; Pulse Ox 98% on R/A; Pain 2/10; jr10 11:14 BP 136 / 79; Pulse 83; Resp 20; Pulse Ox 98% on R/A; jr10 MDM: 06:04 Patient medically screened. [facility] 06:14 Data reviewed: vital signs, nurses notes, lab test result(s), EKG, radiologic studies, valente plain films. 06:14 Differential diagnosis: abnormal EKG, coronary artery disease chest wall pain, valente pneumothorax, pulmonary embolus, stable angina, unstable angina. HEART Score: ECG: Normal (0), Age: < or = 45 years (0), Risk Factors: 1 or 2 risk factors (1), [Hypertension] Troponin: < or = 1 x Normal Limit (0). The patient was given aspirin in the Emergency Department. The patient's deep vein thrombosis risk score was calculated as follows: Total Score: 0. This patient was found to be at low risk for a deep vein thrombosis by using the Well's assessment criteria. The patient's pulmonary embolism risk score was calculated as follows: Total Score: 0-2 points. This patient was found to be at low risk for a pulmonary embolism by using the Well's assessment criteria. SEAN Risk Score: TOTAL SCORE = 0. Data interpreted: activity aide: rate is 75 beats/min, rhythm is regular, Pulse oximetry: on room air is 100 %. Test interpretation: by ED physician or midlevel provider: ECG, plain radiologic studies. Counseling: I had a detailed discussion with the patient and/or guardian regarding: the historical points, exam findings, and any diagnostic results supporting the discharge/admit diagnosis, lab results, radiology results. 07:08 ED course: chest pain , anterior chest wall, reproducible, no acute EKG changes, will jr8 order ct chest ro pe, d-dimer and repeat trop , if negative , will dc home with aspirin and follow up dr johnson. 09:12 ED course: Patients troponin elevated. Has Hypertrophy in past with elevated trop but jr8 never followed up for stress test last year and now having chest pain that is not going away. Will admit and consult Cardiology . 01/12 06:09 Order name: Basic Metabolic Panel [facility] 01/12 06:09 Order name: CBC with Diff [facility] 01/12 06:09 Order name: LFT's [facility] 01/12 06:09 Order name: Magnesium [facility] 01/12 06:09 Order name: NT PRO-BNP [facility] 01/12 06:09 Order name: Troponin (emerg Dept Use Only) [facility] 01/12 06:09 Order name: D-Dimer [facility] 01/12 07:00 Order name: CBC with Automated Diff; Complete Time: 07:05 EDMS 01/12 07:02 Order name: D-Dimer; Complete Time: 07:05 EDMS 01/12 07:13 Order name: Troponin (emerg Dept Use Only): 8 am please [facility] 01/12 07:20 Order name: Basic Metabolic Panel; Complete Time: 07:21 EDMS 01/12 07:20 Order name: Liver (Hepatic) Function; Complete Time: 07:21 EDMS 01/12 07:20 Order name: Troponin (Emerg Dept Use Only); Complete Time: 07:21 EDMS 01/12 07:20 Order name: NT PRO-BNP; Complete Time: 07:21 EDMS 01/12 06:09 Order name: XRAY Chest (1 view) [facility] 01/12 06:09 Order name: EKG; Complete Time: 06:10 [facility] 01/12 06:09 Order name: Cardiac monitoring; Complete Time: 06:38 [facility] 01/12 06:09 Order name: EKG - Nurse/Tech; Complete Time: 06:47 [facility] 01/12 07:07 Order name: CT Chest For PE Angio [facility] 01/12 07:20 Order name: Magnesium; Complete Time: 07:21 EDMS 01/12 08:02 Order name: CT; Complete Time: 08:04 EDMS 01/12 08:02 Order name: RAD; Complete Time: 08:04 EDMS 01/12 08:10 Order name: Urine Dipstick--Ancillary (enter results) me 01/12 08:33 Order name: Urine Dipstick-Ancillary; Complete Time: 08:40 EDMS 01/12 09:35 Order name: Troponin (Emerg Dept Use Only); Complete Time: 09:35 EDMS 01/12 06:09 Order name: IV Saline Lock; Complete Time: 06:38 valente 01/12 06:09 Order name: Labs collected and sent; Complete Time: 06:38 [facility] 01/12 06:09 Order name: O2 Per Protocol; Complete Time: 06:19 [facility] 01/12 06:09 Order name: O2 Sat Monitoring; Complete Time: 06:19 [facility] 01/12 06:19 Order name: Urine Dipstick-Ancillary (obtain specimen); Complete Time: 08:56 valente EC:51 Rate is 85 beats/min. Rhythm is regular. QRS [place] is Normal. NV interval is normal. QRS valente interval is normal. QT interval is normal. No Q waves. T waves are Normal. No ST changes noted. Clinical impression: NSR w/ Non-specific ST/T Changes and No evidence of ischemia. Interpreted by me. Reviewed by me. Administered Medications: 06:30 Drug: NS 0.9% 1000 ml Route: IV; Rate: 125 ml/hr; Site: left antecubital; jd3 11:46 Follow up: IV Status: Infusion continued upon admission jr10 06:38 Drug: Aspirin 162 mg Route: PO; jd3 07:58 Follow up: Response: No adverse reaction jr10 08:15 Drug: Aspirin Chewable Tablet 162 mg Route: PO; jr10 08:57 Follow up: Response: No adverse reaction jr10 08:20 Drug: Potassium Chloride 20 mEq Route: PO; jr10 08:57 Follow up: Response: No adverse reaction jr10 08:22 Drug: Lovenox 1 mg/kg Route: Sub-Q; Site: abdomen; jr10 08:57 Follow up: Response: No adverse reaction jr10 Disposition: 01/13 11:10 Co-signature as Attending Physician, Andrews Shetty MD I agree with the assessment and [facility] plan of care. Disposition: 01/13/20 09:14 Hospitalization ordered by Prince Nayeli for Observation. Preliminary diagnosis are Chest pain, unspecified, Abnormal results of cardiovascular function studies. - Bed requested for Telemetry/MedSurg (observation). - Status is Observation. jr10 - Condition is Stable. - Problem is new. - Symptoms are unchanged. 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 [facility] 10:28 09:14 Hospitalization Ordered by Prince Nayeli SULLIVAN for Observation. Preliminary mt diagnosis is Chest pain, unspecified; Abnormal results of cardiovascular function studies. Bed requested for Telemetry/MedSurg (observation). Status is Observation. Condition is Stable. Problem is new. Symptoms are unchanged. jr8 11:47 10:28 01/13/2020 09:14 Hospitalization Ordered by Prince Nayeli SULLIVAN for Observation. jr10 Preliminary diagnosis is Chest pain, unspecified; Abnormal results of cardiovascular function studies. Bed requested for Telemetry/MedSurg (observation). Status is Observation. Condition is Stable. Problem is new. Symptoms are unchanged. mt
--- NOTE | 2020-01-13 09:15 | ER ---
Nurse's Notes [facility] Name: Seymour Cristiano Age: 44 yrs Sex: Male : 1975 Arrival Date: 01/13/2020 Time: 06:02 Bed 4 Private MD: Diagnosis: Chest pain, unspecified;Abnormal results of cardiovascular function studies Presentation: 01/12 06:04 Chief complaint: Patient states: Chest pain, shortness of breath and nausea. sg Coronavirus screen: Client denies travel out of the [place] in the last 14 days. At this time, the client does not indicate any symptoms associated with coronavirus-19. Ebola Screen: Patient negative for fever greater than or equal to 101.5 degrees Fahrenheit, and additional compatible Ebola Virus Disease symptoms Patient denies exposure to infectious person. Patient denies travel to an Ebola-affected area in the 21 days before illness onset. No symptoms or risks identified at this time. Initial Sepsis Screen: Does the patient meet any 2 criteria? No. Patient's initial sepsis screen is negative. Does the patient have a suspected source of infection? No. Patient's initial sepsis screen is negative. Risk Assessment: Do you want to hurt yourself or someone else? Patient reports no desire to harm self or others. Onset of symptoms was January 13, 2020. Care prior to arrival: None. Transition of care: patient was not received from another setting of care. 06:04 Acuity: BEBE 3 sg 06:04 Method Of Arrival: Ambulatory sg Historical: - Allergies: 06:06 No Known Allergies; sg - Home Meds: 06:06 amlodipine oral [Active]; losartan-hydrochlorothiazide Oral [Active]; sg - PMHx: 06:06 Hypertension; Vertigo; sg - PSHx: 06:06 Hernia repair; sg - Immunization history:: Adult Immunizations not immunized. - Social history:: Smoking status: Patient denies any tobacco usage or history of. - Family history:: not pertinent. Screenin:40 Abuse screen: Denies threats or abuse. Nutritional screening: No deficits noted. jd3 Tuberculosis screening: No symptoms or risk factors identified. Fall Risk IV access (20 points). Ambulatory Aid- None/Bed Rest/Nurse Assist (0 pts). Gait- Normal/Bed Rest/Wheelchair (0 pts) Mental Status- Oriented to own ability (0 pts). Total Frias Fall Scale indicates No Risk (0-24 pts). Assessment: 06:39 General: Appears in no apparent distress. uncomfortable, Behavior is calm, cooperative, jd3 appropriate for age. Pain: Complains of pain in chest Pain does not radiate. Pain began 1 day ago. Neuro: Level of Consciousness is awake, alert, obeys commands, Oriented to person, place, time, situation. Cardiovascular: Capillary refill < 3 seconds Patient's skin is warm and dry. Respiratory: Reports pain with respiration Airway is patent Respiratory effort is even, unlabored, Respiratory pattern is regular, symmetrical. GI: No signs and/or symptoms were reported involving the gastrointestinal system. Patient currently denies abdominal pain, constipation, diarrhea, nausea, vomiting. : No signs and/or symptoms were reported regarding the genitourinary system. EENT: No signs and/or symptoms were reported regarding the EENT system. Derm: Skin is intact, Skin is dry, Skin is normal, Skin temperature is warm. Musculoskeletal: Circulation, motion, and sensation intact. Range of motion: intact in all extremities. Vital Signs: 07:10 BP 157 / 97; Pulse 79; Resp 20; Pulse Ox 98% on R/A; jr10 07:30 Temp 97.8(O); Weight 117.93 kg; jr10 08:49 BP 156 / 100; Pulse 72; Resp 20; Pulse Ox 98% on R/A; jr10 10:02 BP 139 / 70; Pulse 63; Resp 17; Pulse Ox 98% on R/A; Pain 2/10; jr10 11:14 BP 136 / 79; Pulse 83; Resp 20; Pulse Ox 98% on R/A; jr10 ED Course: 06:02 Patient arrived in ED. fj1 06:04 Andrews Shetty MD is Attending Physician. valente 06:04 Arm band placed on. sg 06:05 Triage completed. sg 06:39 Inserted saline lock: 18 gauge in left antecubital area, using aseptic technique. Blood jd3 collected. placed by [employer]. 06:40 Patient has correct armband on for positive identification. Bed in low position. Call jd3 light in reach. Side rails up X 1. manager monitoring on. Pulse ox on. NIBP on. 06:40 Patient maintains SpO2 saturation greater than 95% on room air. jd3 06:47 EKG done, by ED staff, reviewed by Andrews Shetty MD. ds4 07:02 Notified ED physician of a critical lab result(s). D-dimer of 576. jd3 07:10 Latisha Gardiner, RN is Primary Nurse. jr10 07:17 Lg Murphy PA is PHCP. jr8 07:45 CT completed. Patient tolerated procedure well. Patient moved back from CT. bq 09:13 Prince Tyler MD is Hospitalizing Provider. jr8 11:13 No provider procedures requiring assistance completed. Patient admitted, IV remains in jr10 place. intact, No redness/swelling at site. Administered Medications: 06:30 Drug: NS 0.9% 1000 ml Route: IV; Rate: 125 ml/hr; Site: left antecubital; jd3 11:46 Follow up: IV Status: Infusion continued upon admission jr10 06:38 Drug: Aspirin 162 mg Route: PO; jd3 07:58 Follow up: Response: No adverse reaction jr10 08:15 Drug: Aspirin Chewable Tablet 162 mg Route: PO; jr10 08:57 Follow up: Response: No adverse reaction jr10 08:20 Drug: Potassium Chloride 20 mEq Route: PO; jr10 08:57 Follow up: Response: No adverse reaction jr10 08:22 Drug: Lovenox 1 mg/kg Route: Sub-Q; Site: abdomen; jr10 08:57 Follow up: Response: No adverse reaction jr10 Outcome: 09:14 Decision to Hospitalize by Provider. jr8 11:13 Admitted to Med/surg accompanied by tech, via wheelchair, room 214, with chart, Report jr10 called to NARDA Renteria 11:13 Condition: stable 11:13 Instructed on the need for admit. 11:47 Patient left the ED. jr10 Signatures: Albert Bishop, RN Andrews Figueroa MD MD cha Quilty, Betty bq Lg Murphy PA PA jr8 Neri Palma ds4 Ru Cai RN RN jd3 Justin Figueroa fj1 Latisha Gardiner RN RN jr10
--- NOTE | 2020-01-13 10:12 | P.HP ---
Certification for Inpatient Patient admitted to: Observation With expected LOS: <2 Midnights Patient will require the following post-hospital care: None Practitioner: I am a practitioner with admitting privileges, knowledge of patient current condition, hospital course, and medical plan of care. Services: Services provided to patient in accordance with Admission requirements found in Title 42 Section 412.3 of the Code of Federal Regulations Patient History Date of Service: 01/13/20 Primary Care Provider: Dr. Conklin Reason for admission: NSTEMI History of Present Illness: 44-year-old male with history of hypertension and left ventricular hypertrophy presents emergency department for chest pain. Patient reports that the chest pain began yesterday after lifting and pushing a heavy object. Patient reports the chest pain started on the right side of his chest and this was not bothering him much but this morning when he woke up with chest pain and migrated to left side. Chest pain not reproducible to palpation. Patient does report that when he takes a deep breath it can make it worse. Patient was admitted in 2019 and found to have similarly elevated troponin but he is not having chest pain at this time. Patient was having vertigo during that admission. Patient was seen had echocardiogram performed which showed normal left ejection fraction with left ventricular hypertrophy. Patient has never had a stress test or heart catheterization. Initial troponin in the emergency department 0.57. ED provider wishes to admit patient for further evaluation and management. When I saw the patient in the emergency department he was awake, alert, oriented x4. Patient reports only mild chest pain at this time. Will admit for further evaluation and management. Allergies No Known Allergies Allergy (Unverified 02/19/16 03:09) Home Medications: Amlodipine [Norvasc*] 10 mg PO DAILY 11/30/18 Aspirin [Aspirin EC 81 MG] 81 mg PO DAILY #90 tablet. 11/30/18 Losartan/Hydrochlorothiazide [Losartan-Hctz 100-25 mg Tab] 1 each PO DAILY 11/30/18 Meclizine HCl 25 mg PO BID PRN #5 tablet 11/30/18 [place]-3 Fatty Acids/Fish Oil [Fish Oil 1,000 mg Softgel] 2 each PO BID #120 capsule 11/30/18 - Past Medical/Surgical History Diabetic: No -: Hypertension -: Left ventricular hypertrophy -: Hernia repair Psychosocial/ Personal History: Patient has a girlfriend. 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 - Family History Father -: Heart disease - Social History Smoking Status: Never smoker Alcohol use: Yes CD- Drugs: No Caffeine use: No Place of Residence: Home Review of Systems 10-point ROS is otherwise unremarkable Cardiovascular: Chest Pain Physical Examination - Physical Exam General: Alert, In no apparent distress HEENT: Atraumatic, PERRLA, Mucous membr. moist/pink, EOMI, Sclerae nonicteric Neck: Supple, 2+ carotid pulse no bruit, No LAD, Without JVD or thyroid abnormality Respiratory: Clear to auscultation bilaterally, Normal air movement Cardiovascular: Regular rate/rhythm, Normal S1 S2 Gastrointestinal: Normal bowel sounds, No tenderness Musculoskeletal: No tenderness Integumentary: No rashes Neurological: Normal gait, Normal speech, Normal strength at 5/5 x4 extr, Normal tone, Normal affect Lymphatics: No axilla or inguinal lymphadenopathy - Studies Laboratory Data (last 24 hrs) 01/13/20 06:26: WBC 9.4, Hgb 15.2, Hct 45.2, Plt Count 249 01/13/20 06:26: Sodium 143, Potassium 3.3 L, BUN 14, Creatinine 1.27, Glucose 126 H, Magnesium 1.8, Total Bilirubin 0.6, AST 43 H, ALT 48, Alkaline Phosphatase 84 Assessment and Plan - Plan Assessment Chest pain-NSTEMI Hypertension Plan Chest pain-NSTEMI: Case was discussed with cardiology while patient is in the emergency department. Will continue with full anticoagulation Lovenox 1 milligram/kilogram twice daily. NPO after midnight for possible heart catheterization tomorrow morning. Will hold tomorrow morning dose of Lovenox. Patient has never had stress test or heart catheterization previous echocardiogram with normal ejection fraction. Patient not having significant chest pain at this time. Will start beta rohith, aspirin as well. Patient to remain on telemetry throughout this hospitalization. Anticipate discharge after heart catheterization if medical management is recommended or possibly 1 additional overnight stay if intervention is performed. Hypertension: Patient hypertensive in the emergency department, continue patient's home medications losartan, hydrochlorothiazide. Add metoprolol. Continue to monitor closely. Discharge Plan: Home - Advance Directives Does patient have a Living Will: No Does patient have a Durable POA for Healthcare: No - Code Status/Comfort Care Code Status Assessed: Yes (Patient is full code) Critical Care: No Time Spent Managing Pts Care (In Minutes): 55
[2020-01-13 12:08] VITALS: BMI 38.0
[2020-01-13 15:57] LABS: CKMB Creatine Kinase MB 14.8 ng/mL (0.3-3.6); Troponin I 0.57 ng/mL (0.0-0.045)
[2020-01-13] MEDS ORDERED: ATORVASTATIN 80 MG TAB PO SCH (21:00)
[2020-01-13] MEDS ORDERED: Enoxaparin 120 MG/0.8 ML SYR SQ SCH (21:00)
[2020-01-13 23:32] LABS: CKMB Creatine Kinase MB 13.5 ng/mL (0.3-3.6); Troponin I 0.55 ng/mL (0.0-0.045)
[2020-01-14 04:42] LABS: Absolute Lymphocytes (CBC) 3.4 K/uL (0.7-4.9); Basophils % 0.5 % (0-1.3); Hematocrit 43.8 % (39.6-49.0); MPV 9.4 fL (7.6-11.3); RBC Red Blood Cell Count 5.33 M/uL (4.33-5.43)
[2020-01-14 05:11] LABS: Potassium 3.6 mmol/L (3.5-5.1)
[2020-01-14] MEDS ORDERED: METOPROLOL XL 25 MG TAB PO SCH (06:00)
[2020-01-14] MEDS ORDERED: NA CHLORIDE 0.9% 1,000 ML ONE (06:18)
[2020-01-14] MEDS ORDERED: LIDOCAINE 1% 20 ML MDV ONE (07:30)
[2020-01-14] MEDS ORDERED: HEPA 1000U/500MLS 2,000 UNIT/1,000 ML BAG IV ONE (07:30)
[2020-01-14] MEDS ORDERED: MIDAZOLAM HCL 2 MG/2 ML INJ ONE ×2 (07:40→09:09)
[2020-01-14] MEDS ORDERED: HEPARIN 5000 UNIT/ML 1 ML VIAL ONE (07:40)
[2020-01-14] MEDS ORDERED: HEPARIN 10,000 UNIT/10 ML VIAL IV ONE (07:41)
[2020-01-14] MEDS ORDERED: NICARDIPINE HCL 25 MG/10 ML IV ONE (07:41)
[2020-01-14] MEDS ORDERED: FENTANYL CITR 100 MCG/2 ML ONE (07:41)
[2020-01-14] MEDS ORDERED: NITROGLYCERIN 100 MCG/ML SYR (for cath lab use only) IV ONE (07:42)
[2020-01-14] MEDS ORDERED: NITROGLYCERIN/D5W 25 MG/250 ML BTL IV ONE (07:42)
[2020-01-14] MEDS ORDERED: ATROPINE SULF 1 MG/10 ML SYR IV ONE (07:42)
[2020-01-14] MEDS ORDERED: hydroCHLOROthiazide 25 MG TAB PO SCH (09:00)
[2020-01-14] MEDS ORDERED: LOSARTAN POTASSIUM 50 MG TABLET PO SCH (09:00)
[2020-01-14] MEDS ORDERED: ASPIRIN EC 81 MG TAB PO SCH (09:00)
[2020-01-14] MEDS ORDERED: POTASSIUM CL SA 10 MEQ TAB PO ONE (09:00)
--- NOTE | 2020-01-14 10:27 | CON ---
Reason For Consultation: Chest pain and positive troponin. History Of Present Illness: Mr. Quinonez is a 44-year-old black male, who has a history of hypertension, concentric left ventricular hypertrophy. He came in with initially right-sided chest pain after lif ting a heavy object. The pain finally settled in the left side of the chest anteriorly and radiated to the left arm. He got diaphoretic, but no nausea, vomiting, shortness of breath. Denied any PND, orthopnea, pedal edema, palpitation, or syncope. Allergies: NONE. Review of Systems: Negative. Social History: Negative. Family History: Noncontributory. Medications: At home include Norvasc, aspirin, and Hyzaar. Physical Examination: Vital Signs: Stable. He was afebrile. General: He was in no acute distress. HEENT: Negative. Neck: Supple without any bruit, lymphadenopathy, JVD, thyromegaly. Chest: Clear to auscultation and percussion. Cardiac: Exam revealed a regular rhythm and rate with an S4 gallop. No murmurs or rubs. Abdomen: Benign. Extremities: Revealed no clubbing, cyanosis, or edema. Imaging: EKG showed LVH. His chest x-ray was negative. CTA was negative. Echocardiogram in 2019 showed left ventricular hype rtrophy. Laboratory Data: Potassium of 3.3, creatinine of 1.27. Troponin was 0.53. Impression And Plan: This is a 44-year-old male with history of hypertension, significant left ventr icular hypertrophy, who came in with hypokalemia, renal insufficiency, chest pain, positive troponin consistent with Non-ST elevation myocardial infarction. This certainly could be secondary to LVH and hypertension, but with chest pain and a positive troponin, a left heart catheterization was recommen ded. The patient agreed to proceed. He understands the risk and the benefits of the procedure. We will make a decision on his further therapy after the catheterization is done. The catheterization w ill be done on 01/14/[address] Paulino. JAKE/MIGEL Voice ID: [id number] Report ID: [id number]
--- NOTE | 2020-01-14 12:58 | P.PN ---
Subjective Date of Service: 01/14/20 Primary Care Provider: Dr. Conklin Chief Complaint: NSTEMI Subjective: Improving Physical Examination - Vital Signs Temperature: 97.3 F Blood Pressure: 154/83 Pulse: 65 Respirations: 18 Pulse Ox (%): 96 - Physical Exam General: Alert, In no apparent distress, Oriented x3, Cooperative HEENT: Atraumatic Neck: Supple Respiratory: Clear to auscultation bilaterally, Normal air movement Cardiovascular: Normal pulses, Regular rate/rhythm Neurological: Normal speech, Normal strength at 5/5 x4 extr, Normal tone, Normal affect - Studies Medications List Reviewed: Yes Assessment & Plan Discharge Plan: Home Plan to discharge in: 24 Hours Physician Review Additional Text: Assessment Chest pain-NSTEMI Hypertension Hypertriglyceridemia Plan Chest pain-NSTEMI: Patient to have heart catheterization at this time. Suspect underlying CAD. Await recommendations by Cardiology. Continue current medicat ion at this time. Possible discharge in the next 24 hr pending cardiology recommendations and heart catheterization findings. Hypertension: Patient hypertensive in the emergency department, continue patient's home medications losartan, hydrochlorothiazide. Add metoprolol. Continue to monitor closely. Hypertriglyceridemia: Will start fish oil. Continue statin medication Time Spent Managing Pts Care (In Minutes): 55
[2020-01-14] MEDS ORDERED: ACETAMINOPHEN 325 MG TABLET PO PRN (13:06)
[2020-01-14] MEDS ORDERED: NITROGLYCERIN 0.4 MG/TAB SL PRN (13:07)
--- NOTE | 2020-01-14 13:25 | P.DS ---
Admission Date: 01/13/20 Discharge Date: 01/14/20 Primary Care Provider: Dr. Conklin Disposition: ROUTINE DISCHARGE Discharge Condition: GOOD Reason for Admission: NSTEMI Consultations: Cardiology-Dr. Paulino Procedures: Heart catheterization: Normal coronaries noted. CT chest: FINDINGS: No evidence of pulmonary thromboembolism. No acute aortic finding demonstrated. The lungs are clear. No significant pericardial or pleural fluid. No concerning bony finding. Small hiatal hernia. IMPRESSION: No evidence of pulmonary thromboembolism. No acute lung findings. Medical Problem List: Chest pain with elevated troponin secondary to Acute Coronary Syndrome status post heart catheterization showing normal coronaries Hypertension uncontrolled Hypertriglyceridemia History of left ventricular hypertrophy likely related to hypertension GERD with hiatal hernia Brief History of Present Illness: 44-year-old male with history of hypertension, left ventricular hypertrophy. Patient presented with chest pain. Patient also found to have elevated troponin. Patient was admitted for further evaluation and treatment. Hospital Course: Patient presented with chest pain and elevated troponin. Patient was seen and evaluated by Cardiology. Patient found to have Acute Coronary Syndrome. Heart catheterization was recommended. Heart catheterization performed showed normal coronaries. No further intervention was required. Recommendation is to continue with aspirin 81 mg daily. Metoprolol XL 25 mg daily was added. Recommend follow up with cardiology in 2-4 weeks time follow up this hospitalization. Patient with elevated blood pressure with noted history of hypertension. Patient with history of left ventricular hypertrophy. Medications have been adjusted. Metoprolol XL added. At discharge patient will continue with losartan 100 mg daily, hydrochlorothiazide 25 mg daily and metoprolol XL 25 mg daily. Recommend to maintain blood pressure less 140/90. Further adjustment can be done by his PCP or cardiology.Recommend to monitor his blood pressures daily and keep a daily log. Patient with hypertriglyceridemia. At discharge patient may continue with fish oil 1000 mg 1 pill twice daily. Recommend to continue with a heart healthy diet. Recommend to recheck fasting lipid panel in 4-6 weeks to monitor his progress. CT scan also revealed small hiatal hernia. Patient likely with GERD. Patient may continue with Pepcid 20 mg 1 pill twice daily. Recommend follow up with GI as an outpatient to further monitor and address. Vital Signs/Physical Exam: Temp Pulse Resp BP Pulse Ox 97.3 F 65 18 154/83 H 96 01/14/20 12:28 01/14/20 12:28 01/14/20 12:28 01/14/20 12:28 01/14/20 12:28 General: Alert, In no apparent distress, Oriented x3, Cooperative HEENT: Atraumatic Neck: Supple Respiratory: Clear to auscultation bilaterally, Normal air movement Cardiovascular: Normal pulses, Regular rate/rhythm Gastrointestinal: Normal bowel sounds, Soft and benign, Non-distended, No tenderness, No masses, No rebound, No guarding Musculoskeletal: No erythema, No tenderness, No warmth Neurological: Normal speech, Normal strength at 5/5 x4 extr, Normal tone, Normal affect Laboratory Data at Discharge: WBC 9.9 K/uL (4.3-10.9) 01/14/20 03:41 Hgb 14.3 g/dL (13.6-17.9) 01/14/20 03:41 Hct 43.8 % (39.6-49.0) 01/14/20 03:41 Plt Count 214 K/uL (152-406) 01/14/20 03:41 Sodium 141 mmol/L (136-145) 01/14/20 03:41 Potassium 3.6 mmol/L (3.5-5.1) 01/14/20 03:41 BUN 12 mg/dL (7-18) 01/14/20 03:41 Creatinine 1.19 mg/dL (0.55-1.3) 01/14/20 03:41 Glucose 101 mg/dL (74-106) 01/14/20 03:41 Magnesium 2.0 mg/dL (1.8-2.4) 01/14/20 03:41 Total Bilirubin 0.6 mg/dL (0.2-1.0) 01/13/20 06:26 AST 43 U/L (15-37) H 01/13/20 06:26 ALT 48 U/L (12-78) 01/13/20 06:26 Alkaline Phosphatase 84 U/L (45-117) 01/13/20 06:26 Troponin I 0.55 ng/mL (0.0-0.045) H* 01/13/20 22:41 Triglycerides 391 mg/dL (<150) H 01/14/20 03:41 Cholesterol 180 mg/dL (<200) 01/14/20 03:41 HDL Cholesterol 39 mg/dL (40-60) L 01/14/20 03:41 Cholesterol/HDL Ratio 4.62 01/14/20 03:41 Home Medications: Aspirin [Ecotrin 81 MG] 81 mg PO DAILY 01/13/20 Losartan Potassium 100 mg PO DAILY 01/13/20 hydroCHLOROthiazide [Hydrochlorothiazide] 25 mg PO DAILY 01/13/20 Docosahexanoic AC/Epa [Fish Oil 1,000 MG*] 1,000 mg PO BID #60 cap 01/14/20 Famotidine [Pepcid] 20 mg PO BID #60 tab 01/14/20 Metoprolol Succinate [Toprol Xl*] 25 mg PO [id number] #30 tab 01/14/20 New Medications: Docosahexanoic AC/Epa [Fish Oil 1,000 MG*] 1,000 mg PO BID #60 cap Famotidine [Pepcid] 20 mg PO BID #60 tab Metoprolol Succinate [Toprol Xl*] 25 mg PO [id number] #30 tab Patient Discharge Instructions: 1. Recommend follow up with PCP in 1 week to follow up this hospitalization. 2. Patient presented with chest pain and elevated troponin. Patient was seen and evaluated by Cardiology. Patient found to have Acute Coronary Syndrome. Heart catheterization was recommended. Heart catheterization performed showed normal coronaries. No further intervention was required. Recommendation is to continue with aspirin 81 mg daily. Metoprolol XL 25 mg daily was added. Recommend follow up with cardiology in 2-4 weeks time follow up this hospitalization. 3. Patient with elevated blood pressure with noted history of hypertension. Patient with history of left ventricular hypertrophy. Medications have been adjusted. Metoprolol XL added. At discharge patient will continue with losartan 100 mg daily, hydrochlorothiazide 25 mg daily and metoprolol XL 25 mg daily. Recommend to maintain blood pressure less 140/90. Further adjustment can be done by his PCP or cardiology.Recommend to monitor his blood pressures daily and keep a daily log. 4. Patient with hypertriglyceridemia. At discharge patient may continue with fish oil 1000 mg 1 pill twice daily. Recommend to continue with a heart healthy diet. Recommend to recheck fasting lipid panel in 4-6 weeks to monitor his progress. 5. CT scan also revealed small hiatal hernia. Patient likely with GERD. Patient may continue with Pepcid 20 mg 1 pill twice daily. Recommend follow up with GI as an outpatient to further monitor and address. Diet: AHA Activity: Ad hakeem Time spent managing pt's care (in minutes): 55
[2020-01-14] MEDS ORDERED: NA CHLORIDE 0.9% 1,000 ML IV SCH (14:00)
[2020-01-14 14:49] VITALS: BP 129/63; TEMP 96.9; O2SAT 99
[2020-01-14] MEDS ORDERED: DOCOSAHEXANOIC AC/EPA 1000 MG PO SCH (21:00)
== END 2020-01-14 14:37 | disposition home or self-care (01) | DRG 282 ==
LOC: ER 05:56 → ERHOLD 09:40 → 2ND 11:36 → OBSVTOIN 14:08
PROVIDERS: ADMIT Internal Medicine; ATTEND Family Medicine
PROC: 4A023N7 Measurement of Cardiac Sampling and Pressure, Left Heart, Percutaneous Approach (ICD-10-PCS; principal; 2020-01-14)
PROC: B2111ZZ Fluoroscopy of Multiple Coronary Arteries using Low Osmolar Contrast (ICD-10-PCS; 2020-01-14)
DX: I21.4 Non-ST elevation (NSTEMI) myocardial infarction (principal); I10 Essential (primary) hypertension; E78.1 Pure hyperglyceridemia; E87.6 Hypokalemia; K21.9 Gastro-esophageal reflux disease without esophagitis; K44.9 Diaphragmatic hernia without obstruction or gangrene; R42 Dizziness and giddiness; Z79.82 Long term (current) use of aspirin; Z79.899 Other long term (current) drug therapy
CPT/HCPCS: 36415; 71045; 71275; 80048; 80061; 80076; 81003; 82550; 82553; 83735; 83880; 84484; 85025; 85379; 93005; 93458; 96360; 96361; 96372; 99285; C1893; G0378; J1644; J1650; J2250; J3010; J7030; Q9967

== ENCOUNTER 2024-05-28 11:32 | Emergency (ER) | payer OTHER ==
--- OUTSIDE RECORDS SUMMARY | 2024-05-28 11:35 | XMS REPORT | Continuity of Care Document ---
Author Name Unknown Address [address] [place] [address] [facility] thconnect Address [address] [place] [address] Care Team Providers Care Supervisor Nurse Name Role Phone Doctor Unassigned, [place] Attending Clinician Qing Mckenzie Attending Clinician [phone] Lab, Adc Fam Pob I Attending Clinician Unavailab Rebecca Justice Attending Clinician [phone] REBECCA MATHIAS Attending Clinician Unavailable Payers Payer Name Policy Type Policy Number Effective Date Expirati on Date Source Allergies, Adverse Reactions, Alerts Allergy Name Allergy Type Status Severity Reaction(s) Onset Date Inactive Date Treating Clinician Comments Source NO KNOWN ALLERGIE S Drug Class Active [facility] Social History Social Habit Start Date Stop Date Quantity Comments Source Exposure to SARS-CoV-2 (event) Yes [facility] Sex Assigned At 1975 00:00:00 1975 00:00:00 [facility] Smoking Status Start Date Stop Date Source Unknown if ever smoked [facility] Procedures Procedure Date / Time Performed Performing Clinician Source AUTHORIZATION FOR RELEASE OF PHI 2020-08-27 05:01:00 Doctor Unassigned, [place] [facility] Encounters Start Date/Time End Date/Time Encounter Type Admission Type Attending Clinicians Care Facility Care Department Encounter ID Source 2020-08-27 00:00:00 2020-08-27 00:00:00 Orders Only Doctor Unassigned, [place] [facility] [id number] [facility] 2019-12-21 00:00:00 2019-12-21 00:00:00 Telephone Qing Artis [facility] [address] [id number] [facility] 2019-12-21 00:00:00 2019-12-21 00:00:00 Telephone Qing Artis [facility] [id number] 2019-12-20 07:45:57 2019-12-20 08:05:57 Laboratory Only Lab, [facility] Pob I Rebecca Mathias [facility] [address] [id number] [facility] 2019-12-20 07:45:57 2019-12-20 08:05:57 Laboratory Only Lab, [facility] [address] [id number] 2019-12-20 07:40:00 2019-12-20 07:40:00 Outpatient R REBECCA MATHIAS [facility] [id number] [facility] 2019-12-20 00:00:00 2019-12-20 00:00:00 Letter (Out) Doctor Unassigned, [place] [facility] [id number] [facility] 2019-12-20 00:00:00 2019-12-20 00:00:00 Letter (Out) Doctor Unassigned, [place] [facility] [id number]
[2024-05-28 12:31] LABS: Absolute Basophils 0.1 K/uL (0-0.5); Absolute Eosinophils 0.1 K/uL (0-0.5); Absolute Lymphocytes (CBC) 1.8 K/uL (0.7-4.9); Absolute Monocytes 0.5 K/uL (0.1-1.3); Basophils % 0.8 % (0-1.3); Eosinophils % 1.7 % (0-4.4); Hematocrit 49.6 % (39.6-49.0); Hemoglobin 15.7 g/dL (13.6-17.9); Lymphocytes % 24.3 % (15.3-44.8); MCH 26.3 pg (27.0-35.0); MCHC 31.6 g/dL (32.0-36.0); MCV 83.3 fL (80-100); Monocytes % 6.9 % (3.3-12.3); Neutrophils % 66.3 % (41.7-73.7); Platelets 256 thou/uL (152-406); RBC Red Blood Cell Count 5.95 M/uL (4.33-5.43); Red Cell Distribution Width 13.6 % (12.1-15.2)
[2024-05-28 12:37] LABS: Protime INR 0.98
[2024-05-28 12:51] LABS: Albumin 4.1 g/dL (3.4-5.0); Anion Gap 8.5 mEq/L (5.0-15.0); Bilirubin Direct 0.2 mg/dL (0-0.2); Bilirubin Indirect, Calculated 1.3 mg/dL (0.2-0.8); Bilirubin Total 1.5 mg/dL (0.2-1.0); Magnesium 1.8 mg/dL (1.6-2.4); Potassium 3.5 mEq/L (3.5-5.1); Protein, Total 8.1 g/dL (6.4-8.2)
[2024-05-28 12:52] LABS: Troponin High Sensitivity 700.4 pg/mL (<58.9)
--- NOTE | 2024-05-28 13:08 | RAD REPORT ---
Procedure: Chest Single View HISTORY: Chest pain COMPARISON: 2019 FINDINGS: The lungs appear clear of acute infiltrate. No significant pleural effusion noted. The heart is normal size. IMPRESSION: No acute abnormality is displayed.
--- NOTE | 2024-05-28 13:35 | ER ---
Nurse's Notes [facility] Steve Name: Seymour Cristiano Age: 49 yrs Sex: Male : 1975 Arrival Date: 05/28/2024 Time: 11:32 Bed 17 Private MD: Diagnosis: Paroxysmal atrial fibrillation Presentation: 05/28 11:50 Chief complaint: Patient states: SENT FROM PCP FOR AFIB WITH RVR, NO HISTORY. bp Coronavirus screen: At this time, the client does not indicate any symptoms associated with coronavirus-19. Ebola Screen: No symptoms or risks identified at this time. Initial Sepsis Screen: Does the patient meet any 2 criteria? No. Patient's initial sepsis screen is negative. Does the patient have a suspected source of infection? No. Patient's initial sepsis screen is negative. Risk Assessment: Do you want to hurt yourself or someone else? Patient reports no desire to harm self or others. Onset of symptoms was May 28, 2024. 11:50 Method Of Arrival: Ambulatory bp 11:50 Acuity: BEBE 3 bp Historical: - Allergies: 11:52 No Known Allergies; bp - PMHx: 11:52 Hypertension; Vertigo; bp - Immunization history:: Adult Immunizations up to date. - Infectious Disease History:: Denies. - Social history:: Smoking status: Patient denies any tobacco usage or history of. Screenin:[facility] ED Fall Risk Assessment (Adult) History of falling in the last 3 months, rs5 including since admission No falls in past 3 months (0 pts) Confusion or Disorientation No (0 pts) Intoxicated or Sedated No (0 pts) Impaired Gait No (0 pts) Mobility Assist Device Used No (0 pt) Altered Elimination No (0 pt) Score/Fall Risk Level 0 - 2 = Low Risk Oriented to surroundings, Maintained a safe environment. Nutritional screening: No deficits noted. 11:53 Abuse screen: Denies threats or abuse. Tuberculosis screening: No symptoms or risk rs5 factors identified. Assessment: 11:53 General: Appears in no apparent distress. uncomfortable, Behavior is calm, cooperative. rs5 Pain: Complains of pain in left upper back Pain currently is 3 out of 10 on a pain scale. Quality of pain is described as aching, Is continuous. Neuro: Level of Consciousness is awake, alert, obeys commands, Oriented to person, place, time, situation. Cardiovascular: Patient's skin is warm and dry. Respiratory: Airway is patent Respiratory effort is even, unlabored, Respiratory pattern is regular, symmetrical. GI: Abdomen is round non-distended, Abd is soft and non tender X 4 quads. : No signs and/or symptoms were reported regarding the genitourinary system. EENT: No signs and/or symptoms were reported regarding the EENT system. Derm: Skin is intact, Skin is dry, Skin is normal, Skin temperature is warm. Musculoskeletal: Range of motion: intact in all extremities. 12:04 Reassessment: EKG provided to provider, notified of rhythm and rate. rs5 12:15 Reassessment: Patient and/or family updated on plan of care and expected duration. Pain rs5 level reassessed. Patient is alert, oriented x 3, equal unlabored respirations, skin warm/dry/pink. EKG provided to pt, notified of latest vitals, rhythm, and rate. 12:15 General: Appears uncomfortable, well groomed, well developed, well nourished, Behavior me1 is calm, cooperative, appropriate for age. Pain: Denies pain. Neuro: Level of Consciousness is awake, alert, obeys commands, Oriented to person, place, time, situation, Appropriate for age. Cardiovascular: Patient's skin is warm and dry. Rhythm is sinus rhythm. Respiratory: Airway is patent Respiratory effort is even, unlabored, Respiratory pattern is regular, symmetrical. GI: No signs and/or symptoms were reported involving the gastrointestinal system. : No signs and/or symptoms were reported regarding the genitourinary system. EENT: No signs and/or symptoms were reported regarding the EENT system. Derm: Skin is intact, is healthy with good turgor, Skin is normal. Musculoskeletal: No signs and/or symptoms reported regarding the musculoskeletal system. Vital Signs: 11:50 BP 161 / 112; Pulse 53; Resp 16; Temp 98; Pulse Ox 100% ; bp 12:01 BP 134 / 80; Pulse 137; Resp 18; Pulse Ox 99% on R/A; rs5 12:14 BP 144 / 82; Pulse 74; Resp 17; Pulse Ox 99% on R/A; rs5 12:30 BP 124 / 72; Pulse 68; Resp 18; Pulse Ox 100% ; me1 13:30 BP 129 / 82; Pulse 60; Resp 17; Pulse Ox 98% ; me1 14:00 BP 130 / 77; Pulse 60; Resp 14; Temp 98.4; Pulse Ox 100% ; me1 ED Course: 11:35 Patient arrived in ED. im 11:35 Araceli Ritchie PA-C is PHCP. sb4 11:35 Denver Adams MD is Attending Physician. sb4 11:52 Triage completed. bp 11:52 Arm band placed on. bp 11:53 Patient has correct armband on for positive identification. Placed in gown. Bed in low rs5 position. Call light in reach. Side rails up X2. 11:53 No provider procedures requiring assistance completed. rs5 11:58 Brian Benson, NARDA is Primary Nurse. rs5 12:15 Provided Education on: POC. Verbalized understanding.. Client placed on continuous me1 cardiac and pulse oximetry monitoring. NIBP monitoring applied. mission worker on. Pulse ox on. NIBP on. 12:21 Paz Alvarado, RN is Primary Nurse. me1 12:22 Basic Metabolic Panel Sent. me1 12:22 CBC with Diff Sent. me1 12:22 LFT's Sent. me1 12:22 Magnesium Sent. me1 12:22 NT PRO-BNP Sent. me1 12:22 PT-INR Sent. me1 12:22 Troponin HS Sent. me1 12:22 Initial lab(s) drawn, by me, sent to lab. Inserted saline lock: 20 gauge in right me1 antecubital area, using aseptic technique. 12:40 XRAY Chest (1 view) In Process Unspecified. EDMS 13:33 Cole Betancourt MD is Referral Physician. sb4 14:07 IV discontinued, intact, bleeding controlled, No redness/swelling at site. Pressure me1 dressing applied. Administered Medications: 13:37 Drug: amiodarone PO 400 mg PO once Route: PO; me1 14:08 Follow up: Response: No adverse reaction me1 Medication: 12:16 VIS not applicable for this client. rs5 Outcome: 13:34 Discharge ordered by . sb4 14:07 Discharged to home ambulatory, with family, me1 14:07 Condition: stable 14:07 Discharge instructions given to patient, family, Instructed on discharge instructions, follow up and referral plans. medication usage, Demonstrated understanding of instructions, follow-up care, medications, Prescriptions given X 1, 14:07 Patient left the ED. me1 Signatures: Dispatcher [employer] David Ross, RN RN Araceli Chavez, PA-C PA-C sb4 Brian Benson RN RN rs5 Colette Santana Michelle, RN RN me1
--- NOTE | 2024-05-28 13:35 | EDPHYS ---
Physician Documentation [facility] Name: Seymour Cristiano Age: 49 yrs Sex: Male : 1975 Arrival Date: 05/28/2024 Time: 11:32 Bed 17 Private MD: ED Physician Denver Adams HPI: 05/28 12:01 This 49 yrs old Black Male presents to ER via Ambulatory with complaints of Abnormal sb4 Lab Results - EKG. 12:01 Patient states that he has been having intermittent episodes of palpitations for a few sb4 months now. He saw his air tool operator last week, did blood work, EKG, echocardiogram, and a 48-hour Holter monitor and was told that all of his results were normal. He states that today at work, he started having another episode that seemed worse than usual so he went to his doctor. They did an EKG and told him he was in A-fib RVR and sent him over to the ED for further evaluation. Historical: - Allergies: 11:52 No Known Allergies; bp - PMHx: 11:52 Hypertension; Vertigo; bp - Immunization history:: Adult Immunizations up to date. - Infectious Disease History:: Denies. - Social history:: Smoking status: Patient denies any tobacco usage or history of. ROS: 12:01 Constitutional: Negative for fever, chills, and weight loss, sb4 12:01 Cardiovascular: Positive for palpitations, 12:01 All other systems are negative, Exam: 12:01 Constitutional: This is a well developed, well nourished patient who is awake, alert, sb4 and in no acute distress. Head/Face: Normocephalic, atraumatic. Eyes: Extra-ocular motions intact. Periorbital areas with no swelling, redness, or edema. ENT: Mucous membranes moist. Respiratory: No increased work of breathing, no retractions or nasal flaring. Abdomen/GI: Soft, non-tender, no distension. Skin: Warm, dry with normal turgor. Normal color with no rashes, no lesions, and no evidence of cellulitis. 12:01 Cardiovascular: Rate: tachycardic, Rhythm: irregularly irregular, Vital Signs: 11:50 BP 161 / 112; Pulse 53; Resp 16; Temp 98; Pulse Ox 100% ; bp 12:01 BP 134 / 80; Pulse 137; Resp 18; Pulse Ox 99% on R/A; rs5 12:14 BP 144 / 82; Pulse 74; Resp 17; Pulse Ox 99% on R/A; rs5 12:30 BP 124 / 72; Pulse 68; Resp 18; Pulse Ox 100% ; me1 13:30 BP 129 / 82; Pulse 60; Resp 17; Pulse Ox 98% ; me1 14:00 BP 130 / 77; Pulse 60; Resp 14; Temp 98.4; Pulse Ox 100% ; me1 MDM: 11:40 Medical Screening Exam initiated sb4 13:32 Data reviewed: vital signs, nurses notes, lab test result(s), EKG, radiologic studies, sb4 I have discussed the patient's presentation/case with the attending Emergency Department Physician; and as a result, I will discharge patient. Consideration of Admission/Observation Escalation of care including admission/observation considered. Management of patient was discussed with the following: [employer] Dies: Dr. Betancourt, patient's air tool operator, wants to start patient on amiodarone 200 mg BID and will see patient in office later this week. I did inform him of the elevated troponin and he said it is okay, likely secondary to the afib (is also chronically elevated) and is safe for discharge home if he is chest pain free. Counseling: I had a detailed discussion with the patient and/or guardian regarding the historical points, exam findings, and any diagnostic results supporting the discharge/admit diagnosis, the presence of at least one elevated blood pressure reading (>120/80) during this emergency department visit, lab results, radiology results, the need for outpatient follow up, a air tool operator, to return to the emergency department if symptoms worsen or persist or if there are any questions or concerns that arise at home. 05/28 11:40 Order name: Basic Metabolic Panel; Complete Time: 12:54 sb4 05/28 11:40 Order name: CBC with Diff; Complete Time: 12:35 sb4 05/28 11:40 Order name: LFT's; Complete Time: 12:54 sb4 05/28 11:40 Order name: Magnesium; Complete Time: 12:54 sb4 05/28 11:40 Order name: NT PRO-BNP; Complete Time: 12:54 sb4 05/28 11:40 Order name: PT-INR; Complete Time: 12:37 sb4 05/28 11:40 Order name: Troponin HS; Complete Time: 12:54 sb4 05/28 11:40 Order name: XRAY Chest (1 view); Complete Time: 13:09 sb4 05/28 11:40 Order name: Cardiac monitoring; Complete Time: 12:16 sb4 05/28 11:40 Order name: EKG - Nurse/Tech; Complete Time: 12:16 sb4 05/28 11:40 Order name: IV Saline Lock; Complete Time: 12:16 sb4 05/28 11:40 Order name: Labs collected and sent; Complete Time: 12:16 sb4 05/28 11:40 Order name: O2 Per Protocol; Complete Time: 12:16 sb4 05/28 11:40 Order name: O2 Sat Monitoring; Complete Time: 12:16 sb4 EC:05 Rate is 132 beats/min. Rhythm is irregularly irregular, A fib. Right axis deviation sb4 noted. QRS interval is normal at 88 msec. QT interval is normal at 350 msec. Clinical impression: Atrial Fibrillation. Interpreted by me. Reviewed by me. 12:07 Rate is 64 beats/min. Rhythm is regular. Right axis deviation noted. NV interval is sb4 normal at 154 msec. QRS interval is normal at 84 msec. QT interval is normal at 392 msec. No Q waves. T waves are Normal. No ST changes noted. Clinical impression: No evidence of ischemia. Interpreted by me. Reviewed by me. Administered Medications: 13:37 Drug: amiodarone PO 400 mg PO once Route: PO; me1 14:08 Follow up: Response: No adverse reaction me1 Disposition Summary: 05/28/24 13:34 Discharge Ordered Notes: Location: Home sb4 Problem: new sb4 Symptoms: have improved sb4 Condition: Stable sb4 Diagnosis - Paroxysmal atrial fibrillation sb4 Followup: sb4 - With: Cole Betancourt MD - When: 2 - 3 days - Reason: Recheck today's complaints, Re-evaluation by your physician Followup: sb4 - With: Emergency Department - When: As needed - Reason: Trouble breathing, Worsening of condition Discharge Instructions: - Discharge Summary Sheet sb4 - Atrial Fibrillation sb4 Forms: - Patient Portal Instructions sb4 - Leadership Thank You Letter sb4 Prescriptions: - Eliquis 5 mg Oral tablet - take 1 tablet ORAL route every 12 hours; 20 tablet; Refills: 0, Product sb4 Selection Permitted - amiodarone 200 mg Oral tablet - take 1 tablet ORAL route 2 times per day; 20 tablet; Refills: 0, Product sb4 Selection Permitted Signatures: Dispatcher [employer] David Ross, RN RN Araceli Chavez, PA-C PA-C sb4 Paz Alvarado RN RN me1 Corrections: (The following items were deleted from the chart) 11:41 11:41 BASIC METABOLIC PANEL+C.LAB.BRZ ordered. EDMS EDMS 11:41 11:41 CBC+H.LAB.BRZ ordered. EDMS EDMS 11:41 11:41 HEPATIC FUNCTION+C.LAB.BRZ ordered. EDMS EDMS 11:41 11:41 MAGNESIUM+C.LAB.BRZ ordered. EDMS EDMS 11:41 11:41 PROBNP+C.LAB.BRZ ordered. EDMS EDMS 11:41 11:41 PROTIME (+INR)+COAG.LAB.BRZ ordered. EDMS EDMS 11:41 11:41 Troponin High Sensitivity+C.LAB.BRZ ordered. EDMS EDMS 11:41 11:41 Chest Single View+RAD.RAD.BRZ ordered. EDMS EDMS 13:54 13:32 Management of patient was discussed with the following: [employer] Dies: Dr. Betancourt, sb4 patient's air tool operator, wants to start patient on amiodarone 200 mg BID and will see patient in office later this week. I did inform him of the elevated troponin and he said it is okay, likely secondary to the afib, and is safe for discharge home if he is chest pain free. sb4
[2024-05-28] MEDS ORDERED: AMIODARONE HCL 200 MG TAB ONE (13:36)
[2024-05-28 14:52] VITALS: BP 130/77; TEMP 98.4; O2SAT 100
--- NOTE | 2024-05-29 14:40 | EKG ---
Test Date: 2024-05-28 Test Time: 12:05:11 Chronic Disease Manager: MARK MEASUREMENT RESULTS: Intervals: Rate: 132 CA: QRSD: 88 QT: 350 QTc: 518 [place]: P: CA: QRS: 120 T: -2 INTERPRETIVE STATEMENTS: Atrial fibrillation with rapid ventricular response Right axis deviation Abnormal QRS-T angle, consider primary T wave abnormality Abnormal ECG Compared to ECG 01/13/2020 06:45:09 Right-axis deviation now present T-wave abnormality now present Sinus rhythm no longer present Electronically Signed On 05-29-24 14:39:04 ADJUSTER by Fernando Paulino
--- NOTE | 2024-06-01 13:48 | EKG ---
Test Date: 2024-05-28 Test Time: 12:07:42 Purse Framer: MARK MEASUREMENT RESULTS: Intervals: Rate: 64 KS: 154 QRSD: 84 QT: 392 QTc: 404 [place]: P: 59 KS: 154 QRS: 99 T: 39 INTERPRETIVE STATEMENTS: Normal sinus rhythm Rightward axis Borderline ECG Compared to ECG 05/28/2024 12:05:11 Atrial fibrillation no longer present T-wave abnormality no longer present Electronically Signed On 06-01-24 13:38:59 CLIENT SERVICES COORDINATOR by Fernando Paulino
== END 2024-05-28 14:07 | disposition home or self-care (01) ==
LOC: ER 11:32
DX: I48.0 Paroxysmal atrial fibrillation (principal); I10 Essential (primary) hypertension
CPT/HCPCS: 36415; 71045; 80048; 80076; 83735; 83880; 84484; 85025; 85610; 93005; 99284

== ENCOUNTER 2024-08-10 23:29 | Inpatient (IN) | payer OTHER ==
--- OUTSIDE RECORDS SUMMARY | 2024-08-10 23:32 | XMS REPORT | Continuity of Care Document ---
Author Name Unknown Address [address] [place] [address] [facility] Address [address] [place] [address] Care Team Providers Care Business Support Name Role Phone Doctor Unassigned, [place] Attending Clinician U Qing Rios Attending Clinician [phone] Lab, Adc Fam Pob I Attending Clinician Unavailab Rebecca Justice Attending Clinician [phone] REBECCA MATHIAS Attending Clinician Unavailable Payers Payer Name Policy Type Policy Number Effective Date Expirati on Date Source Allergies, Adverse Reactions, Alerts Allergy Name Allergy Type Status Severity Reaction(s) Onset Date Inactive Date Treating Clinician Comments Source NO KNOWN ALLERGIE S Drug Class Active [facility] Social History Social Habit Start Date Stop Date Quantity Comments Source Exposure to SARS-CoV-2 (event) Yes [facility] Sex Assigned At 1975 00:00:00 1975 00:00:00 [facility] Smoking Status Start Date Stop Date Source Unknown if ever smoked [facility] Procedures Procedure Date / Time Performed Performing Clinician Source AUTHORIZATION FOR RELEASE OF PHI 2020-08-27 05:01:00 Doctor Unassigned, [place] [facility] Encounters Start Date/Time End Date/Time Encounter Type Admission Type Attending Clinicians Care Facility Care Department Encounter ID Source 2020-08-27 00:00:00 2020-08-27 00:00:00 Orders Only Doctor Unassigned, [place] [facility] [id number] [facility] 2019-12-21 00:00:00 2019-12-21 00:00:00 Telephone Qing Artis [facility] [address] [id number] 2019-12-21 00:00:00 2019-12-21 00:00:00 Telephone Qing Artis [facility] [id number] [facility] 2019-12-20 07:45:57 2019-12-20 08:05:57 Laboratory Only Lab, [facility] [address] [facility] [id number] 2019-12-20 07:45:57 2019-12-20 08:05:57 Laboratory Only Lab, [facility] Pob I Rebecca Mathias [facility] [address] [id number] [facility] 2019-12-20 07:40:00 2019-12-20 07:40:00 Outpatient R REBECCA MATHIAS [facility] [id number] [facility] 2019-12-20 00:00:00 2019-12-20 00:00:00 Letter (Out) Doctor Unassigned, [place] [facility] [id number] 2019-12-20 00:00:00 2019-12-20 00:00:00 Letter (Out) Doctor Unassigned, [place] [facility] [id number] [facility]
[2024-08-10] MEDS ORDERED: MAGNESIUM SULFATE 1 gm IVPB 1 GM/100 ML BAG IV ONE (23:53)
[2024-08-11] MEDS ORDERED: METOPROLOL TAR 50 MG TAB ONE (00:02)
[2024-08-11] MEDS ORDERED: METOPROLOL TARTRATE 5 MG/5 ML INJ IV ONE (00:03)
[2024-08-11 00:14] LABS: Absolute Basophils 0.1 K/uL (0-0.5); Absolute Eosinophils 0.5 K/uL (0-0.5); Absolute Lymphocytes (CBC) 4.7 K/uL (0.7-4.9); Absolute Monocytes 0.9 K/uL (0.1-1.3); Absolute Neutrophil 4.6 K/uL (1.8-8.0); Basophils % 0.5 % (0-1.3); Eosinophils % 4.8 % (0-4.4); Hematocrit 44.5 % (39.6-49.0); Hemoglobin 14.7 g/dL (13.6-17.9); Lymphocytes % 43.6 % (15.3-44.8); MCH 27.2 pg (27.0-35.0); MCHC 33.1 g/dL (32.0-36.0); MCV 82.1 fL (80-100); MPV 9.3 fL (7.6-11.3); Monocytes % 8.4 % (3.3-12.3); Neutrophils % 42.7 % (41.7-73.7); Platelets 215 thou/uL (152-406); RBC Red Blood Cell Count 5.42 M/uL (4.33-5.43); Red Cell Distribution Width 14.1 % (12.1-15.2)
[2024-08-11 00:15] LABS: Protime INR 0.96
[2024-08-11 00:30] LABS: Anion Gap 8.9 mEq/L (5.0-15.0); Magnesium 2.1 mg/dL (1.6-2.4); Potassium 2.9 mEq/L (3.5-5.1)
[2024-08-11 00:48] LABS: Troponin High Sensitivity 520.6 pg/mL (<58.9)
--- NOTE | 2024-08-11 01:25 | ER ---
Nurse's Notes [facility] Name: Seymour Cristiano Age: 49 yrs Sex: Male : 1975 Arrival Date: 08/10/2024 Time: 23:29 Bed 16 Private MD: Diagnosis: Paroxysmal atrial fibrillation-with rapid ventricular rate Presentation: 08/10 23:31 Chief complaint: Patient states: CHEST PAIN, NAUSEA, WEAKNESS, AND ELEVATED BLOOD ha1 PRESSURE. 23:31 Coronavirus screen: Client denies travel out of the [place] in the last 14 days. Ebola ha1 Screen: No symptoms or risks identified at this time. Initial Sepsis Screen: Does the patient meet any 2 criteria? No. Patient's initial sepsis screen is negative. Does the patient have a suspected source of infection? No. Patient's initial sepsis screen is negative. Risk Assessment: Do you want to hurt yourself or someone else? Patient reports no desire to harm self or others. Onset of symptoms was August 11, 2024. 23:31 Method Of Arrival: Wheelchair ha1 23:31 Acuity: BEBE 2 ha1 Triage Assessment: 23:31 General: Appears uncomfortable, Behavior is cooperative. Pain: Complains of pain in ha1 chest Pain does not radiate. Pain currently is 8 out of 10 on a pain scale. Quality of pain is described as pressure. Neuro: Level of Consciousness is awake, alert, obeys commands, Oriented to person, place, time, situation. Neuro: Reports weakness. Cardiovascular: Capillary refill < 3 seconds Patient's skin is warm and dry. Rhythm is atrial fibrillation. Cardiovascular: Reports chest pain. Respiratory: Airway is patent Respiratory effort is even, unlabored, Respiratory pattern is regular, symmetrical. GI: Abdomen is round non-distended, Bowel sounds present X 4 quads. Reports nausea. : No signs and/or symptoms were reported regarding the genitourinary system. Derm: Skin is pink, warm \T\ dry. Musculoskeletal: Circulation, motion, and sensation intact. Range of motion: intact in all extremities. Historical: - Allergies: : No Known Allergies; ha1 - Home Meds: :31 metoprolol tartrate 50 mg Oral tablet [Active]; losartan-hydrochlorothiazide Oral ha1 [Active]; Magnesium Oxide Oral [Active]; - PMHx: 23:31 Vertigo; Hypertension; Atrial fibrillation; ha1 - Immunization history:: Adult Immunizations up to date. - Infectious Disease History:: Denies. - Social history:: Smoking status: Patient denies any tobacco usage or history of. - Family history:: not pertinent. - Hospitalizations: : No recent hospitalization is reported. Screenin/08 00:51 [facility] ED Fall Risk Assessment (Adult) History of falling in the last 3 months, ha1 including since admission No falls in past 3 months (0 pts) Confusion or Disorientation No (0 pts) Intoxicated or Sedated No (0 pts) Impaired Gait No (0 pts) Mobility Assist Device Used No (0 pt) Altered Elimination No (0 pt) Score/Fall Risk Level 0 - 2 = Low Risk Oriented to surroundings, Maintained a safe environment, Educated pt \T\ family on fall prevention, incl call for assistance when getting out of bed, Hourly rounding (assess needs \T\ fall precautionary measures) done. Abuse screen: Denies threats or abuse. Denies injuries from another. Nutritional screening: No deficits noted. Tuberculosis screening: No symptoms or risk factors identified. Assessment: 08/10 23:31 Reassessment: SEE TRIAGE ASSESSMENT. ha1 08/11 00:20 Reassessment: Patient and/or family updated on plan of care and expected duration. Pain ha1 level reassessed. Patient is alert, oriented x 3, equal unlabored respirations, skin warm/dry/pink. PAIN 5/10 Patient states feeling better. Patient states symptoms have improved. 01:20 Reassessment: Patient and/or family updated on plan of care and expected duration. Pain ha1 level reassessed. Patient is alert, oriented x 3, equal unlabored respirations, skin warm/dry/pink. 03:01 Reassessment: Patient and/or family updated on plan of care and expected duration. Pain ha1 level reassessed. Patient is alert, oriented x 3, equal unlabored respirations, skin warm/dry/pink. Vital Signs: 08/10 23:31 BP 187 / 102; Pulse 117; Resp 19 S; Temp 97.9(T); Pulse Ox 99% on R/A; Weight 113.4 kg; ha1 Height 5 ft. 11 in. ; 08/11 00:17 BP 163 / 97; Pulse 98; Resp 17 S; Pulse Ox 99% on R/A; ha1 00:25 BP 142 / 97; Pulse 89; Resp 17; Pulse Ox 98% on R/A; ha1 01:30 BP 130 / 80; Pulse 97; Resp 16 S; Pulse Ox 99% on R/A; ha1 02:20 BP 144 / 94; Pulse 100; Resp 18 S; Pulse Ox 98% on R/A; ha1 03:01 BP 135 / 81; Pulse 104; Resp 18 S; Pulse Ox 98% on R/A; ha1 08/10 23:31 Body Mass Index 34.87 (113.40 kg, 180.34 cm) ha1 ED Course: 08/10 23:30 Patient arrived in ED. im 23:31 Patient has correct armband on for positive identification. Bed in low position. Call ha1 light in reach. Side rails up X 1. Adult w/ patient. 23:31 Provided Education on: PLAN OF CARE . Client placed on continuous cardiac and pulse ha1 oximetry monitoring. NIBP monitoring applied. lamp shade assembler on. 23:33 Corwin Carmen MD is Attending Physician. rn 23:40 Inserted saline lock: 20 gauge in right antecubital area, using aseptic technique. ha1 Blood collected. Flushed with 10 mL NS. 23:43 EKG done, by master sonar technician. af3 23:47 Jessica Baez, NARDA is Primary Nurse. kd3 08/11 00:14 Triage completed. ha1 00:24 X-ray completed. Portable x-ray completed in exam room. Patient tolerated procedure 1 well. 00:40 XRAY Chest (1 view) In Process Unspecified. EDMS 01:24 Kai Duran MD is Hospitalizing Provider. rn 05:55 No provider procedures requiring assistance completed. Patient admitted, IV remains in ha1 place. Patient maintains SpO2 saturation greater than 95% on room air. Administered Medications: 00:07 Drug: Metoprolol IVP 5 mg IVP once; Hold for SBP <100 or HR <60. Route: IVP; Site: ha1 right antecubital; 00:30 Follow up: Response: No adverse reaction; Marked relief of symptoms ha1 00:11 Drug: Magnesium Sulfate IVPB 1 grams IVPB once over 1 hrs Route: IVPB; Infused Over: 1 ha1 hrs; Site: right antecubital; 01:20 Follow up: Response: No adverse reaction; Marked relief of symptoms; IV Status: ha1 Completed infusion 00:11 Not Given (Patient Refused): [id number] mg PO once ha1 Medication: 05:56 VIS not applicable for this client. ha1 Outcome: 01:24 Decision to Hospitalize by Provider. rn 05:55 Admitted to ER Hold. Please see [facility] for further documentation. 1 05:55 Condition: stable 05:55 Instructed on the need for admit, 12:46 Patient left the ED. kc6 Signatures: Dispatcher [employer] EDMS Kaia Carlos Corwin Barrios MD MD rn Doucette, Kyli, RN RN kd3 Claire Story RN RN Karlee Hassan RN RN kc6 Colette Santana Ashley af3
--- NOTE | 2024-08-11 01:25 | EDPHYS ---
Physician Documentation [facility] Name: Jeannettejohana Cristiano Age: 49 yrs Sex: Male : 1975 Arrival Date: 08/10/2024 Time: 23:29 Bed 16 Private MD: ED Physician Corwin Carmen HPI: 08/11 00:37 This 49 yrs old Black Male presents to ER via Wheelchair with complaints of Chest Pain, rn General Weakness, High Blood Pressure. 00:38 The patient presents with a history of irregular heart beat, heart racing. Onset: The rn symptoms/episode began/occurred 30 minute(s) ago. Modifying factors: The symptoms are aggravated by nothing. The symptoms are alleviated by nothing. Severity of symptoms: At their worst the symptoms were moderate in the emergency department the symptoms are unchanged. The patient has experienced similar episodes in the past. Patient reports 30 to 45 minutes of palpitations, heart racing, feels chest discomfort and dizziness. Patient with a history of atrial fibrillation and states it feels the same. Takes metoprolol for A-fib. States compliant with medication.. Historical: - Allergies: 08/10 23:31 No Known Allergies; ha1 - Home Meds: 23:31 metoprolol tartrate 50 mg Oral tablet [Active]; losartan-hydrochlorothiazide Oral ha1 [Active]; Magnesium Oxide Oral [Active]; - PMHx: 23:31 Vertigo; Hypertension; Atrial fibrillation; ha1 - Immunization history:: Adult Immunizations up to date. - Infectious Disease History:: Denies. - Social history:: Smoking status: Patient denies any tobacco usage or history of. - Family history:: not pertinent. - Hospitalizations: : No recent hospitalization is reported. ROS: 08/11 00:38 Constitutional: Negative for fever, chills, and weight loss, Cardiovascular: Positive rn for chest pain and palpitations Respiratory: Negative for shortness of breath, cough, wheezing, and pleuritic chest pain, Abdomen/GI: Negative for abdominal pain, nausea, vomiting, diarrhea, and constipation, MS/Extremity: Negative for injury and deformity, Skin: Negative for injury, rash, and discoloration, Neuro: Negative for headache, weakness, numbness, tingling, and seizure, Exam: 00:38 Constitutional: This is a well developed, well nourished patient who is awake, alert, rn and in no acute distress. Cardiovascular: Tachycardic, irregularly irregular Respiratory: Speaking full sentences, unlabored. No increased work of breathing, no retractions or nasal flaring. Neuro: Awake and alert, GCS 15, oriented to person, place, time, and situation. Cranial nerves II-XII grossly intact. Motor strength 5/5 in all extremities. Sensory grossly intact. Cerebellar exam normal. Normal gait. 01:43 ECG was reviewed by the Attending Physician. rn Vital Signs: 08/10 23:31 BP 187 / 102; Pulse 117; Resp 19 S; Temp 97.9(T); Pulse Ox 99% on R/A; Weight 113.4 kg; ha1 Height 5 ft. 11 in. ; 08/11 00:17 BP 163 / 97; Pulse 98; Resp 17 S; Pulse Ox 99% on R/A; ha1 00:25 BP 142 / 97; Pulse 89; Resp 17; Pulse Ox 98% on R/A; ha1 01:30 BP 130 / 80; Pulse 97; Resp 16 S; Pulse Ox 99% on R/A; ha1 02:20 BP 144 / 94; Pulse 100; Resp 18 S; Pulse Ox 98% on R/A; ha1 03:01 BP 135 / 81; Pulse 104; Resp 18 S; Pulse Ox 98% on R/A; ha1 08/10 23:31 Body Mass Index 34.87 (113.40 kg, 180.34 cm) ha1 MDM: 08/10 23:33 Medical Screening Exam initiated rn 08/11 01:23 Differential diagnosis: arrythmia, dehydration, stress disorder. Data reviewed: vital rn signs, nurses notes, lab test result(s), EKG, radiologic studies, plain films, and as a result, I will admit patient. Consideration of Admission/Observation Patient was admitted/placed on observation. Escalation of care including admission/observation considered. Care significantly affected by the following chronic conditions: Atrial fibrillation, hypertension. Counseling: I had a detailed discussion with the patient and/or guardian regarding the historical points, exam findings, and any diagnostic results supporting the discharge/admit diagnosis, lab results, radiology results, the need for further work-up and treatment in the hospital. Response to treatment: the patient's symptoms have mildly improved after treatment, and as a result, I will admit patient. ED course: Patient improved, heart rate down from 130s to about 100. Troponin 500, spoke with patient about this and he states "always elevated". Patient has been admitted before with atrial fibrillation and elevated troponin at that time as well. Denies any current chest pain as his blood pressure and A-fib rate have improved.. 08/10 23:33 Order name: Basic Metabolic Panel; Complete Time: 00:49 rn 08/10 23:33 Order name: CBC with Diff; Complete Time: 00:49 rn 08/10 23:33 Order name: Magnesium; Complete Time: 00:49 rn 08/10 23:33 Order name: NT PRO-BNP; Complete Time: 00:49 rn 08/10 23:33 Order name: PT-INR; Complete Time: 00:49 rn 08/10 23:33 Order name: Troponin HS; Complete Time: 00:49 rn 08/11 02:08 Order name: Troponin High Sensitivity EDVT 03 02:08 Order name: Troponin High Sensitivity EDMS 08/11 02:08 Order name: Troponin High Sensitivity EDMS 03 02:08 Order name: Troponin High Sensitivity EDMS 08/11 02:08 Order name: Troponin High Sensitivity EDMS 03/08 06:07 Order name: Glucose, Ancillary Testing EDMS 08/10 23:33 Order name: XRAY Chest (1 view) rn 08/11 02:08 Order name: Echo with Doppler EDMS 08/11 02:08 Order name: CONS Physician Consult EDMS 08/10 23:33 Order name: Cardiac monitoring; Complete Time: 23:43 rn 08/10 23:33 Order name: EKG - Nurse/Tech; Complete Time: 23:43 rn 08/10 23:33 Order name: IV Saline Lock; Complete Time: 00:06 rn 08/10 23:33 Order name: Labs collected and sent; Complete Time: 00:06 rn 08/10 23:33 Order name: O2 Per Protocol; Complete Time: 23:43 rn 08/10 23:33 Order name: O2 Sat Monitoring; Complete Time: 23:43 rn EC:43 Rate is 119 beats/min. Rhythm is irregularly irregular. QRS interval is normal. QT rn interval is normal. No Q waves. T waves are Normal. No ST changes noted. Clinical impression: Atrial Fibrillation. Interpreted by me. Reviewed by me. Administered Medications: 00:07 Drug: Metoprolol IVP 5 mg IVP once; Hold for SBP <100 or HR <60. Route: IVP; Site: ha1 right antecubital; 00:30 Follow up: Response: No adverse reaction; Marked relief of symptoms ha1 00:11 Drug: Magnesium Sulfate IVPB 1 grams IVPB once over 1 hrs Route: IVPB; Infused Over: 1 ha1 hrs; Site: right antecubital; 01:20 Follow up: Response: No adverse reaction; Marked relief of symptoms; IV Status: ha1 Completed infusion 00:11 Not Given (Patient Refused): [id number] mg PO once ha1 Disposition Summary: 08/11/24 01:24 Hospitalization Ordered Notes: Hospitalization Status: Inpatient Admission rn Provider: Kai Duran rn Condition: Stable rn Problem: an acute exacerbation rn Symptoms: have improved rn Bed/Room Type: Standard rn Location: Telemetry/MedSurg (Inpatient)(08/11/24 10:55) ty Room Assignment: [facility](08/11/24 10:55) ty Diagnosis - Paroxysmal atrial fibrillation - with rapid ventricular rate rn Forms: - Medication Reconciliation Form rn - SBAR form rn - Leadership Thank You Letter rn oncology clinical time excluding procedures: 01:23 Critical care time: Bedside Care: 30 minutes, Consultation: 5 minutes. Total time: 35 rn minutes Signatures: Dispatcher [employer] EDCorwin Brumfield MD MD rn Ayala, Heidy, RN RN ha1 Tracy Armstrong Tylor ty Corrections: (The following items were deleted from the chart) 00:41 00:38 Constitutional: This is a well developed, well nourished patient who is awake, rn alert, and in no acute distress. Cardiovascular: Tachycardic, irregularly irregular Respiratory: Lungs have equal breath sounds bilaterally, clear to auscultation and percussion. No rales, rhonchi or wheezes noted. No increased work of breathing, no retractions or nasal flaring. rn 02: 01:24 Telemetry/MedSurg (Inpatient) rn vk 02: 01:24 rn vk 10:55 02:22 [facility] ER HOLD vk ty 10:55 02:22 ERHOLD- vk ty
[2024-08-11] MEDS ORDERED: MORPHINE 4 MG/ML SYR IV PRN (02:01)
[2024-08-11] MEDS ORDERED: ALPRAZOLAM 0.25 MG TABLET PO PRN (02:01)
[2024-08-11] MEDS: ASPIRIN 325 MG TAB PO ONE (02:01)
[2024-08-11] MEDS ORDERED: NITROGLYCERIN 0.4 MG/TAB SL PRN (02:01)
--- NOTE | 2024-08-11 02:09 | RAD REPORT ---
EXAM: XR Chest, 1 View CLINICAL HISTORY: The patient is 49 years old and is Male; CHEST PAIN TECHNIQUE: Frontal view of the chest. COMPARISON: XR Chest dated May 28 2024 FINDINGS: LUNGS: Unremarkable. No consolidation. PLEURAL SPACE: Unremarkable. No pneumothorax. HEART: Unremarkable. No cardiomegaly. MEDIASTINUM: Unremarkable. Normal mediastinal contour. BONES/JOINTS: Unremarkable. No acute fracture. UPPER ABDOMEN: Unremarkable as visualized. IMPRESSION: No acute cardiopulmonary process. Electronically signed by: Sofi Carvalho MD 08/11/2024 01:47 AM [facility] Due to temporary technical issues with the PACS/ZingCheckout reporting system, reports are being adebayo d by the in-house radiologist without review as a courtesy to ensure prompt reporting the interpreting radiologist is fully responsible for the content of the report. Transcribed Date/Time: 08/11/2024 2:09 AM
--- NOTE | 2024-08-11 02:11 | P.HP ---
Patient History Date of Service: 08/11/24 History of Present Illness: This is a 49-year-old man with a past medical history of hypertrophic cardiomyopathy, hypertension presenting with tachycardia secondary to A-fib with RVR. He states he was sleeping and felt anxious. Prior to going to bed he was doing some push-ups. He felt his heart rate was elevated and not able to calm down. He denies any fevers, chills, cough, dysuria, diarrhea. He denies tobacco use, alcohol use, or any other illicit drugs. Associated symptoms include chest discomfort. Allergies No Known Allergies Allergy (Unverified 02/19/16 03:09) Home Medications: Aspirin [Ecotrin 81 MG] 81 mg PO DAILY 01/13/20 Losartan Potassium 100 mg PO DAILY 01/13/20 hydroCHLOROthiazide [Hydrochlorothiazide] 25 mg PO DAILY 01/13/20 Docosahexanoic AC/Epa [Fish Oil 1,000 MG*] 1,000 mg PO BID #60 cap 01/14/20 Famotidine [Pepcid] 20 mg PO BID #60 tab 01/14/20 Metoprolol Succinate [Toprol Xl*] 25 mg PO DPOOL0IE #30 tab 01/14/20 - Past Medical/Surgical History Diabetic: No -: Hypertension -: Left ventricular hypertrophy -: Hernia repair Psychosocial/ Personal History: Patient has a girlfriend. 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 - Family History Father -: Heart disease - Social History Alcohol use: No CD- Drugs: No Caffeine use: No Review of Systems Eyes: Unremarkable ENT: Unremarkable Respiratory: Unremarkable Cardiovascular: Palpitations Gastrointestinal: Unremarkable Genitourinary: Unremarkable Musculoskeletal: Unremarkable Integumentary: Unremarkable Neurological: Unremarkable Lymphatics: Unremarkable Physical Examination - Physical Exam General: Alert, In no apparent distress HEENT: Atraumatic, Normocephalic Neck: Supple Respiratory: Clear to auscultation bilaterally Cardiovascular: Irregular heart rate/rhythm Capillary refill: <2 Seconds Gastrointestinal: Normal bowel sounds Musculoskeletal: No clubbing, No swelling Integumentary: No rashes Neurological: Normal speech Lymphatics: No axilla or inguinal lymphadenopathy - Studies Laboratory Data (last 24 hrs) 08/10/24 08/10/24 08/10/24 23:44 23:44 23:44 WBC 10.70 Hgb 14.7 Hct 44.5 Plt Count 215 PT 11.0 INR 0.96 Sodium 142 Potassium 2.9 L BUN 20 H Creatinine 1.48 H Glucose 107 H Magnesium 2.1 Assessment and Plan - Plan A-fib with RVR Elevated troponin Elevated creatinine Hypokalemia He was given metoprolol in the ED, Check echo, consult cardiology Trend troponins Start fluids Replace potassium Telemetry Check magnesium level, was given magnesium in the ED Continue metoprolol and hydrochlorothiazide Holding losartan for now DVT prophylaxis with heparin - Advance Directives Does patient have a Living Will: No Does patient have a Durable POA for Healthcare: No
[2024-08-11] MEDS: METOPROLOL XL 25 MG TAB PO SCH (05:12)
[2024-08-11] MEDS ORDERED: ASPIRIN 325 MG TAB ONE (05:18)
[2024-08-11 05:28] VITALS: BMI 34.5
[2024-08-11] MEDS ORDERED: HEPARIN 5000 UNIT/ML 1 ML VIAL ONE (07:39)
[2024-08-11] MEDS ORDERED: hydroCHLOROthiazide 25 MG TAB ONE (07:39)
[2024-08-11] MEDS ORDERED: ASPIRIN EC 81 MG TAB PO ONE (07:39)
[2024-08-11] MEDS: HEPARIN 5000 UNIT/ML 1 ML VIAL SQ SCH (08:04)
[2024-08-11] MEDS: hydroCHLOROthiazide 25 MG TAB PO SCH (08:04)
[2024-08-11] MEDS: ASPIRIN EC 81 MG TAB PO SCH (08:04)
[2024-08-11] MEDS: FLU (Fluarix Triv) TS24-25(6MOS UP)/PF 45 MCG/0.5 ML Syringe IM ONE (09:45)
[2024-08-11] MEDS: NA CHLORIDE 0.9% 1,000 ML IV SCH (12:00)
[2024-08-11] MEDS: SOTALOL HCL 80 MG TAB PO ONE (13:16)
[2024-08-11] MEDS ORDERED: SOTALOL HCL 80 MG TAB PO SCH (21:00)
[2024-08-11] MEDS: SOTALOL HCL 80 MG TAB PO SCH (21:21)
--- NOTE | 2024-08-12 01:11 | P.PN ---
Subjective Date of Service: 08/11/24 Subjective: No new changes, No C/O voiced, Improving PATIENT CONTINUES TO DO WELL. PATIENT ALSO THE WALL AND CONVERTED TO SINUS RHYTHM. AFTER 3RD DOSE ANTICIPATE DISCHARGE HOME. CONTINUE WITH SOTALOL 40 MG B.I.D. AT THIS TIME. OUTPATIENT ECHOCARDIOGRAM. Review of Systems 10-point ROS is otherwise unremarkable Physical Examination - Vital Signs Temperature: 97.8 F Blood Pressure: 123/74 Pulse: 64 Respirations: 18 Pulse Ox (%): 97 - Physical Exam General: Alert, In no apparent distress, Oriented x3 HEENT: Atraumatic, PERRLA, EOMI Neck: Supple, JVD not distended Respiratory: Clear to auscultation bilaterally, Normal air movement Cardiovascular: Normal S1 S2, Irregular heart rate/rhythm Gastrointestinal: Normal bowel sounds, No tenderness Musculoskeletal: No tenderness Integumentary: No rashes Neurological: Normal speech, Normal tone, Normal affect Lymphatics: No axilla or inguinal lymphadenopathy - Studies Medications List Reviewed: Yes Assessment & Plan - Problems (Diagnosis) (1) Atrial fibrillation with rapid ventricular response Current Visit: Yes Status: Acute (2) Type 2 myocardial infarction Current Visit: Yes Status: Acute - Plan PLAN: 1. PATIENT WITH ATRIAL FIBRILLATION WITH RAPID VENTRICULAR RESPONSE WITH SECONDARY TYPE 2 MYOCARDIAL INFARCTION; CONTINUE WITH MEDICATION FOR RATE CONTROL. SPOKE WITH CARDIOLOGY THEY WANT TO TRY SOTALOL. WILL STARTED 80 MG B.I.D.. AFTER THE DOSE OF SOTALOL PATIENT WENT INTO A SINUS RHYTHM. PATIENT'S HEART RATE WAS IN THE 50S. WILL DECREASE DOSE TO 40 MG B.I.D.. CONTINUE WITH ELIQUIS PATIENT HAS BEEN TAKING IT AT HOME. WILL CHECK THYROID STUDIES AND WILL GET ECHOCARDIOGRAM. ANTICIPATE DISCHARGE OVER THE NEXT 24 HOURS. Discharge Plan: Home Plan to discharge in: Greater than 2 days - Advance Directives Does patient have a Living Will: No Does patient have a Durable POA for Healthcare: No - Code Status/Comfort Care Code Status Assessed: Yes Code Status: Full Code Critical Care: No Time Spent Managing PTS Care (In Minutes): 45
[2024-08-12 05:56] LABS: Absolute Eosinophils 0.4 K/uL (0-0.5); Absolute Lymphocytes (CBC) 2.8 K/uL (0.7-4.9); Absolute Monocytes 0.4 K/uL (0.1-1.3); Absolute Neutrophil 3.9 K/uL (1.8-8.0); Basophils % 0.5 % (0-1.3); Eosinophils % 5.5 % (0-4.4); Hematocrit 44.4 % (39.6-49.0); Hemoglobin 14.3 g/dL (13.6-17.9); Lymphocytes % 37.5 % (15.3-44.8); MCH 26.7 pg (27.0-35.0); MCHC 32.1 g/dL (32.0-36.0); MPV 8.7 fL (7.6-11.3); Monocytes % 5.3 % (3.3-12.3); Neutrophils % 51.2 % (41.7-73.7); Nucleated Red Blood Cells % 0.2 % (0-0); Platelets 220 thou/uL (152-406); RBC Red Blood Cell Count 5.34 M/uL (4.33-5.43); Red Cell Distribution Width 13.7 % (12.1-15.2)
[2024-08-12] MEDS ORDERED: METOPROLOL XL 50 MG TAB PO SCH (06:00)
[2024-08-12 06:33] LABS: Albumin 3.4 g/dL (3.4-5.0); Anion Gap 8.4 mEq/L (5.0-15.0); Bilirubin Total 1.6 mg/dL (0.2-1.0); Globulin 3.5 g/dL (2.3-3.5); Potassium 3.4 mEq/L (3.5-5.1); Protein, Total 6.9 g/dL (6.4-8.2)
[2024-08-13] MEDS ORDERED: REGADENOSON 0.4 MG/5 ML SYR IV ONE (10:37)
--- NOTE | 2024-08-13 13:01 | RAD REPORT ---
EXAM: Nuclear medicine cardiac perfusion examination with ejection fraction HISTORY: Chest pain TECHNIQUE: Rest images: 10.7 mCi technetium 99m sestamibi Stress images: 31.8 mCi of technetium 99m sestamibi; Lexiscan COMPARISON: None FINDINGS: Tomographic images: No evidence of reversible perfusion defects. Moderate-sized fixed defects along t he septal mid to apical wall, and adjacent inferior wall, involving the apex as well. Gated images: Normal wall motion and ejection fraction of 62%. EDV: 138 mL ESV: 53 mL TID: 1.07 IMPRESSION: No scintigraphic evidence of myocardial ischemia. Moderate sized fixed defects along the septal mid to apical wall and adjacent inferior wall, and apex , concerning for remote infarct. Left ventricular ejection fraction:62%, within normal limits.
--- NOTE | 2024-08-13 13:48 | TREADPHA ---
DX: ELEVATED TROPONIN Date of Study: 08/13/2024 Ht: 5' 11 " Wt: 248 lb 0 oz Consulting Physician: FARIBA MEDICATIONS: XANAX, ASPIRIN, HEPARIN, MORPHINE, NITROSTAT, BETAPACE HISTORY: HYPERTENSION, ASTHMA, OCCASIONAL ALCOHOL USE, NO DRUGS, NO SMOKING PHYSICIAL EXAMINATION: RESTING B.P.: 142/85 RESTING H.R.: 72 RESTING EKG: SINUS RHYTHM PROTOCOL: PHARMACOLOGIC EXERCISE TIME: 3:30 B.P. AT [place] STRESS: 139/78 IMPRESSION: LEXISCAN INJECTED. CARDIOLITE INJECTED - SEE NUCLEAR MEDICINE REPORT. NO CHEST PAIN. NO ARRHYTHMIA. NO VENTRICULAR TACHYCARDIA. NO SUPRAVENTRICULAR TACHYCARDIA. PREMATURE VENTRICULAR COMPLEXES NOTED THROUGHOUT.
[2024-08-13 15:35] VITALS: O2SAT 98
[2024-08-13 18:24] VITALS: BP 132/85; TEMP 97.4
--- NOTE | 2024-08-14 11:13 | EKG ---
Test Date: 2024-08-10 Test Time: 23:39:06 Frame Stripper And Crusher: AF MEASUREMENT RESULTS: Intervals: Rate: 126 CT: QRSD: 78 QT: 330 QTc: 477 [place]: P: CT: QRS: 22 T: 101 INTERPRETIVE STATEMENTS: Accelerated Junctional rhythm with premature supraventricular complexes and premature ventricular complexes or fusion complexes Septal infarct, age undetermined Possible Inferior infarct, age undetermined Abnormal ECG Compared to ECG 05/28/2024 12:07:42 Atrial premature complex(es) now present Accelerated junctional rhythm now present Fusion complex(es) now present Ventricular premature complex(es) now present Myocardial infarct finding now present Sinus rhythm no longer present Right-axis deviation no longer present Electronically Signed On 08-14-24 11:03:35 CDT by Howard Anderson
--- NOTE | 2024-08-14 11:14 | ECHO ---
HEIGHT: 5 ft 11 in WEIGHT: 248 lb 0 oz DATE OF STUDY: 08/13/[address]: Kai Duran MD 2-DIMENSIONAL: YES M.MODE: YES DOPPLER: YES COLOR FLOW: YES TDS: PORTABLE: YES DEFINITY: BUBBLE STUDY: DIAGNOSIS: HISTORY OF HYPERTROPHIC CARDIOMYOPATHY, ATRIAL FIBRILLATION CARDIAC HISTORY: CATHERIZATION: NO SURGERY: NO PROSTHETIC VALVE: NO PACEMAKER: NO MEASUREMENTS (cm) DIASTOLIC (NORMALS) SYSTOLIC (NORMALS) IVSd 1.4 (0.6-1.2) LA Diam 2.6 (1.9-4.0) LVEF 60-65% LVIDd 5.3 (3.5-5.7) LVIDs 3.6 (2.0-3.5) %FS 32% LVPWd 1.5 (0.6-1.2) Ao Diam 3.0 (2.0-3.7) 2 DIMENSIONAL ASSESSMENT: RIGHT ATRIUM: NORMAL LEFT ATRIUM: MODERATELY DILATED RIGHT VENTRICLE: NORMAL LEFT VENTRICLE: MODERATELY LEFT VENTRICULAR HYPERTROPHY TRICUSPID VALVE: NORMAL MITRAL VALVE: NORMAL PULMONIC VALVE: NORMAL AORTIC VALVE: NORMAL PERICARDIAL EFFUSION: NONE AORTIC ROOT: NORMAL LEFT VENTRICULAR WALL MOTION: NORMAL DOPPLER/COLOR FLOW: NORMAL COMMENTS: 1. NORMAL LEFT VENTRICULAR SYSTOLIC FUNCTION, EJECTION FRACTION 60-65%, NORMAL WALL MOTION 2. NORMAL DIASTOLIC FUNCTION TECHNOLOGIST: DAPHNE RAMIREZ
--- NOTE | 2024-08-17 12:33 | P.PN ---
Date of Service: 08/12/24 Subjective patient is clinically doing well. Rate is controlled. On sotalol at this time. Continue monitoring hemodynamics. Blood pressures been more elevated. I will get echocardiogram and stress test prior to discharge Physical Examination - Vital Signs reviewed - Physical Exam General: Alert, In no apparent distress, Oriented x3 Respiratory: Clear to auscultation bilaterally, Normal air movement Cardiovascular: Normal S1 S2, Irregular heart rate/rhythm Gastrointestinal: Normal bowel sounds, No tenderness Neurological: Normal speech, Normal tone, Normal affect Assessment & Plan - Problems (Diagnosis) (1) Atrial fibrillation with rapid ventricular response Current Visit: Yes Status: Acute (2) Type 2 myocardial infarction Current Visit: Yes Status: Acute - Plan PLAN: 1. continue with sotalol and get stress test and echo in a.m.. If workup is negative then plan to discharge Discharge Plan: Home Plan to discharge in: Greater than 2 days - Advance Directives Does patient have a Living Will: No Does patient have a Durable POA for Healthcare: No - Code Status/Comfort Care Code Status Assessed: Yes Code Status: Full Code Critical Care: No Time Spent Managing PTS Care (In Minutes): 35
--- NOTE | 2024-08-17 12:34 | P.DS ---
Discharge Date: 08/13/24 Disposition: ROUTINE DISCHARGE Discharge Condition: GOOD - Problems (1) Atrial fibrillation with rapid ventricular response Status: Acute (2) Type 2 myocardial infarction Status: Acute Brief History of Present Illness: This is a 49-year-old man with a past medical history of hypertrophic cardiomyopathy, hypertension presenting with tachycardia secondary to A-fib with RVR. He states he was sleeping and felt anxious. Prior to going to bed he was doing some push-ups. He felt his heart rate was elevated and not able to calm down. He denies any fevers, chills, cough, dysuria, diarrhea. He denies tobacco use, alcohol use, or any other illicit drugs. Associated symptoms include chest discomfort. Hospital Course: Patient was started on sotalol and heart rate was controlled. Patient has also had an echocardiogram with no abnormality. Patient's stress test did not show any reversible ischemia. Spoke with Cardiology and patient is stable for discharge with outpatient follow-up. Vital Signs/Physical Exam: Temp Pulse Resp BP Pulse Ox 97.4 F 52 20 132/85 100 08/13/24 16:00 08/13/24 16:00 08/13/24 16:00 08/13/24 16:00 08/13/24 16:00 General: Alert, In no apparent distress, Oriented x3 Laboratory Data at Discharge: WBC 7.60 thou/uL (4.3-10.9) 08/12/24 05:25 Hgb 14.3 g/dL (13.6-17.9) 08/12/24 05:25 Hct 44.4 % (39.6-49.0) 08/12/24 05:25 Plt Count 220 thou/uL (152-406) 08/12/24 05:25 PT 11.0 SECONDS (10.0-13.0) 08/10/24 23:44 INR 0.96 08/10/24 23:44 Sodium 140 mEq/L (136-145) 08/12/24 05:25 Potassium 3.4 mEq/L (3.5-5.1) L 08/12/24 05:25 BUN 15 mg/dL (7-18) 08/12/24 05:25 Creatinine 1.30 mg/dL (0.70-1.30) 08/12/24 05:25 Glucose 109 mg/dL (74-106) H 08/12/24 05:25 Magnesium 2.1 mg/dL (1.6-2.4) 08/10/24 23:44 Total Bilirubin 1.6 mg/dL (0.2-1.0) H 08/12/24 05:25 AST 20 U/L (15-37) 08/12/24 05:25 ALT 31 U/L (16-61) 08/12/24 05:25 Alkaline Phosphatase 55 U/L (45-117) 08/12/24 05:25 Home Medications: Losartan Potassium 100 mg PO DAILY 01/13/20 Docosahexanoic AC/Epa [Fish Oil 1,000 MG*] 1,000 mg PO BID #60 cap 01/14/20 Apixaban [Eliquis] 5 mg PO DAILY 08/11/24 Sotalol HCl [Betapace*] 40 mg PO BID #30 tab 08/13/24 New Medications: Sotalol HCl [Betapace*] 40 mg PO BID #30 tab Physician Discharge Instructions: -DC IV and DC home -Follow-up with PCP in 1 to 2 weeks -Follow-up with Cardiology in 1 to 2 weeks -Please call Dr. Ramesh at [phone] if any questions regarding hospital stay -Please call nursing station at [phone] if any nursing or medication questions -Return to the emergency room if symptoms worsen Diet: AHA Activity: Fall precautions Followup: Lisandra Estrada [Primary Care Provider] - Time spent managing pt's care (in minutes): 35
== END 2024-08-13 18:27 | disposition home or self-care (01) | DRG 282 ==
LOC: ER 23:29 → ERHOLD 08-11 02:01 → 4TH 08-11 12:05
PROVIDERS: ADMIT Family Medicine; ATTEND Hospitalist
DX: I48.0 Paroxysmal atrial fibrillation (principal); I21.A1 Myocardial infarction type 2; E87.6 Hypokalemia; I10 Essential (primary) hypertension; I42.2 Other hypertrophic cardiomyopathy; R79.89 Other specified abnormal findings of blood chemistry; Z79.82 Long term (current) use of aspirin; Z79.01 Long term (current) use of anticoagulants; Z79.899 Other long term (current) drug therapy
CPT/HCPCS: 36415; 71045; 78452; 80048; 80053; 82947; 83735; 83880; 84439; 84484; 85025; 85610; 93005; 93017; 93306; 94760; 96365; 96375; 99285; A9500; J1644; J2785; J3475